=== PATIENT | female | born 1970 | race Caucasian/White ===

== ENCOUNTER 2017-05-14 15:30 | Observation (INO) | payer OTHER ==
[2017-05-14 16:07] VITALS: BMI 25.0
--- NOTE | 2017-05-19 18:35 | HP ---
DATE OF ADMISSION: 05/20/2017 REASON FOR ADMISSION: Dysmenorrhea, menometrorrhagia, desires prophylactic oophorectomy. SCHEDULED PROCEDURES: Total laparoscopic hysterectomy, bilateral salpingo-oophorectomy, da Blas beto ot. HISTORY OF PRESENT ILLNESS: Ms. Loco is a 47-year-old 2, para 2, status post x2 w ithout a history of dysplasia. She has a history of menorrhagia lasting more than 7 days per month, passing large clots with more than 8 tampons per day. This has been unresponsive to medical manageme nt. She is status post bilateral tubal ligation. 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 PAST MEDICAL HISTORY: Hypothyroidism, status post Graves' disease with radioactive iodine ablation. PAST SURGICAL HISTORY: BTL. ALLERGIES: CODEINE. MEDICATIONS: Synthroid 0.125 p.o. daily. SOCIAL HISTORY: One-half pack per day tobacco use. Denies alcohol or IV drug abuse. FAMILY HISTORY: Noncontributory. REVIEW OF SYSTEMS: Noncontributory. PHYSICAL EXAMINATION: GENERAL: White female, 5 feet 11 inches, 120, BMI 24. VITAL SIGNS: Blood pressure 118/80. HEENT: Within normal limits. LUNGS: Clear to auscultation bilaterally. HEART: Regular rate and rhythm. BREASTS: No masses bilaterally. ABDOMEN: Soft, nontender. No rebound or guarding. PELVIC: Vulva without lesions. Vagina without discharge. Cervix normal size, no lesions. Uterus a nteverted, approximately 8-week size, boggy. No adnexal masses. EXTREMITIES: Without clubbing, cyanosis or edema. LABORATORY: Negative Pap smear. RADIOLOGIC: Ultrasound reveals uterus measuring 8.8 x 4.5 with inhomogeneous appearance consistent w ith adenomyosis of 16 mm endometrial thickness. Normal size. Right and left ovaries without free fl uid. IMPRESSION: Dysmenorrhea, menorrhagia, desires prophylactic oophorectomy. PLAN: We will proceed with total laparoscopic hysterectomy with da Blas and bilateral salpingo-ooph orectomy. The patient understands risks and benefits of procedure including bleeding, infection and injury to pelvic organs. She understands surgical menopause and the possible need for hormone replac ement. The patient also understands the increased risk of infection, DVT, and other postoperative mo rbidity associated with tobacco use. The patient was started on 21 mg per day nicotine patch one wee k prior to surgery.
[2017-05-20] MEDS ORDERED: CEFAZOLIN/Water 2 GM/20 ML SYRINGE ONE (06:19)
[2017-05-20] MEDS ORDERED: Midazolam HCl 2 mg/2 ml Vial ONE ×2 (06:20→07:09)
[2017-05-20] MEDS ORDERED: Fentanyl 100 MCG/2 ML VIAL ONE ×3 (06:20→11:49)
[2017-05-20] MEDS ORDERED: HYDROmorphone 0.5 MG/0.5 ML SYRINGE ONE (06:20)
[2017-05-20] MEDS ORDERED: Lidocaine 1% w/Epinephrine 1:200K 30 ML VIAL ONE (06:28)
[2017-05-20] MEDS ORDERED: Bupivacaine 0.25% HCL 30 ML VIAL ONE (06:28)
[2017-05-20] MEDS ORDERED: Ketorolac Tromethamine 30 MG/ML VIAL ONE (09:33)
--- NOTE | 2017-05-20 10:13 | OP ---
DATE OF PROCEDURE: 05/20/2017 PREOPERATIVE DIAGNOSES: Dysmenorrhea, menometrorrhagia. POSTOPERATIVE DIAGNOSES: Dysmenorrhea, menometrorrhagia, plus adhesions of the bladder to the lower uterine segment and upper cervix. PROCEDURE: Total laparoscopic hysterectomy, bilateral salpingo-oophorectomy with da Blas robot shereen lagos SURGEON: Gregory Gregg M.D. LOGISTICS ASSOCIATE: Sandra Otero D.O. ANESTHESIA: General endotracheal. ESTIMATED BLOOD LOSS: 100 mL. DRAINS: Fischer to gravity. MEDICATIONS: Two grams Ancef preincision. DVT PROPHYLAXIS: SCDs. OPERATIVE FINDINGS: 1. Approximately 8-10 week size uterus consistent with adenomyosis. 2. Normal appearing tubes and ovaries bilaterally. 3. Mildly dense adhesions of the bladder to the cervix and lower uterine segments status post marisa an section. 4. No evidence of bladder injury, backfilling. 5. Hemostasis and correct counts at the end of the procedure. DISPOSITION: To the recovery room in good condition. DESCRIPTION OF OPERATIVE PROCEDURE: After obtaining proper informed consent, the patient taken to [facility] operating room where general endotracheal anesthesia was achieved without difficulty. The patient was prepped and draped in dorsal lithotomy position in Jonathan stirrups. Weighted speculum placed in v agina, cervix identified, single tooth tenaculum grasped anteriorly and sounded to 9 cm. A 3.5 vagin al energy and sustainability manager with 8 cm obturator was placed in the uterine cavity without difficulty. Fischer cathete r placed and draining approximately 150 mL of urine and then placed on 60 mL syringe. Tenaculum a nd speculum removed. Is Consultant changed his gloves and turned his attention to the abdominal portion o f the procedure. Five mL of Marcaine injected at the superior aspect of the umbilicus and a 12 mm sk in incision made. Veress needle placed inside the abdominal cavity. Confirmation of entry to perito anaya cavity via saline drop test. Insufflation carried out with carbon dioxide to a max pressure of 15, volume approximately 3.5 liters. A 12 mm trocar placed and confirmation of entry into the perito anaya cavity without trauma to underlying viscera was noted under direct visualization. The patient w as placed in steep Trendelenburg position and right and left lateral trocars for the da Blas robot w ere placed lateral to epigastric vessels. An 11 mm right upper quadrant senior office assistant port was placed. The da Blas robot was docked with monopolar scissors in the right hand and bipolar fenestrated force ps in the left. Pelvic organs were mobilized and the IP was identified on the patient's left coagula chaparro adjacent to the ovary away from the pelvic sidewall transected and through the broad, the round, and the cardinal ligaments down to just above the level of the internal cervical os. Identical proce dure carried out on the patient's right. Vesicouterine peritoneum was identified and incised sharply . It was noted to be somewhat scarred up onto the uterus, but did not appear significantly tenting t he bladder. However, as dissection was carried down after making the initial incision to the vesicou terine peritoneum, the bladder was noted to be adhesed to the lower uterine segment and cervix up to a level approximately just below that of her previous hysterotomy incisions. This was carried down u sing blunt and sharp dissection until appropriate tissue plane was identified. The bladder was backf illed and deflated several times, assuring it location was identified and no injury to the bladder wa s encountered. Skeletonization of the uterine vessels on each side was carried out and they were coa gulated and transected. Posteriorly, the peritoneum was incised over the vaginal energy and sustainability manager and then the vagina entered at 6 o'clock. This was extended from 6-9 and 6-3, pedicles at the corner were re ndered hemostatic and transected, then anteriorly at 12 o'clock incision was made into the vagina and extended from 12-3 and 12-6. The specimen was pulled into the vagina intact. Suction irrigation ca rried out which revealed good hemostasis. Anterior vagina was grasped and pulled down and backfillin g of the bladder was carried out once again to assure appropriate and identification of the location of the bladder. Bladder was filled up approximately 300 mL of normal saline and no evidence of injur y or leakage was noted to the bladder. It was then deflated and the 0 PDS Stratafix suture was used to close the vagina in a running continuous manner from right to left and then back to right. Good h emostasis was noted and suction irrigation and counts were correct. Lu was applied across the ra w pedicles and field, instruments removed. The da Blas undocked. All trocars removed, abdomen desu fflated of carbon dioxide. The fascia at the umbilical trocar site reapproximated using an 0 Vicryl on a UR-5 needle. Skin reapproximated x4 using 4-0 Monocryl. Vagina inspected and noted to be dry, and intact cuff. Fischer catheter was draining clear urine. The patient was awakened, extubated, and taken to recovery room in good condition.
[2017-05-20] MEDS ORDERED: Promethazine HCl 25 MG/ML VIAL ONE (10:17)
[2017-05-20] MEDS ORDERED: Promethazine HCl 25 MG/ML VIAL SLOW IVP PRN (10:28)
[2017-05-20] MEDS ORDERED: Promethazine HCl 25 MG/ML VIAL IM PRN (10:28)
[2017-05-20] MEDS ORDERED: Ondansetron HCl/PF 4 MG/2 ML Vial IVP PRN (10:28)
[2017-05-20] MEDS ORDERED: Estradiol 0.05mg/24 Hour Patch (Weekly) ONE (11:06)
[2017-05-20] MEDS ORDERED: hydrALAZINE 20 MG/ML VIAL ONE (11:58)
[2017-05-20] MEDS ORDERED: Estradiol 0.05mg/24 Hour Patch (Weekly) TD SCH (13:01)
[2017-05-20] MEDS ORDERED: Zolpidem Tartrate 5 MG TAB PO PRN (13:01)
[2017-05-20] MEDS ORDERED: Simethicone Chewable 80 MG TAB PO PRN (13:01)
[2017-05-20] MEDS: Acetaminophen 1,000 MG in Premix Bag 1 BAG IVPB SCH ×2 (14:13→20:09)
[2017-05-20] MEDS: Sodium Chloride 0.9% 1,000 ML IV SCH ×2 (14:13→21:00)
[2017-05-20] MEDS: Ketorolac Tromethamine 30 MG/ML VIAL IVP SCH ×2 (14:59→20:04)
[2017-05-20] MEDS: Ondansetron HCl/PF 4 MG/2 ML Vial IVP PRN (15:03)
[2017-05-20] MEDS ORDERED: PROPOFOL 200 MG/20 ML VIAL ONE (15:08)
[2017-05-20] MEDS ORDERED: Lidocaine 1% PF 5 ML VIAL ONE (15:08)
[2017-05-20] MEDS ORDERED: Dexamethasone 20 MG/5 ML VIAL ONE (15:08)
[2017-05-20] MEDS ORDERED: PHENYLEPHRINE-NS 100 MCG/ML 10 ML SYRINGE ONE (15:08)
[2017-05-20] MEDS ORDERED: Ondansetron HCl/PF 4 MG/2 ML Vial ONE (15:08)
[2017-05-20] MEDS ORDERED: Glycopyrrolate 0.2 MG/ML 5 ML SYRINGE ONE (15:08)
[2017-05-20] MEDS: traMADol HCl 50 MG TAB PO PRN ×2 (17:43→21:26)
[2017-05-20] MEDS ORDERED: Morphine 5 MG/ML SYRINGE SLOW IVP SCH (19:00)
[2017-05-20] MEDS ORDERED: ADDERRALL PO SCH (21:00)
[2017-05-21] MEDS: Ketorolac Tromethamine 30 MG/ML VIAL IVP SCH ×3 (02:24→13:20)
[2017-05-21] MEDS: Acetaminophen 1,000 MG in Premix Bag 1 BAG IVPB SCH ×2 (02:29→07:32)
[2017-05-21] MEDS ORDERED: Levothyroxine 150 MCG TAB PO SCH (06:00)
[2017-05-21 06:18] LABS: Hemoglobin 8.9 g/dL (12.0-16.0); Mean Corpuscular HGB CONC 31.5 g/dL (32.0-36.0); Mean Corpuscular Hemoglobin 26.2 pg (27.0-31.0); Mean Platelet Volume 9.2 fL (7.4-10.4); Platelet Count 275 thou/uL (130-400); RBC Distribution Width 17.4 % (11.5-14.5); Red Blood Cell (RBC) Count 3.39 mill/uL (4.20-5.40); White Blood Cell (WBC) Count 17.1 thou/uL (4.8-10.8)
[2017-05-21] MEDS: Ondansetron HCl/PF 4 MG/2 ML Vial IVP PRN (06:32)
[2017-05-21 07:30] VITALS: TEMP 98.4
[2017-05-21] MEDS: Promethazine HCl 25 MG/ML VIAL IM PRN ×2 (07:31→15:32)
[2017-05-21] MEDS: Sodium Chloride 0.9% 1,000 ML IV SCH ×2 (07:31→12:19)
[2017-05-21 08:02] VITALS: BP 134/84
[2017-05-21] MEDS ORDERED: Acetaminophen 1,000 MG in Premix Bag 1 BAG IVPB PRN (09:02)
[2017-05-21] MEDS: traMADol HCl 50 MG TAB PO PRN (13:19)
--- NOTE | 2017-05-21 14:26 | DIS ---
DATE OF ADMISSION: 05/20/2017 DATE OF DISCHARGE: 05/21/2017 SUMMARY OF HOSPITAL COURSE: The patient was admitted and underwent total laparoscopic hysterectomy, bilateral salpingo-oophorectomy at [place] on 05/20/2017. She had an unremarkable postoperative c ourse with a hematocrit of 28%. Postoperative day #1, she had good urine output and stable vital sig ns. The patient had mild nausea in the morning, which was responsive to Phenergan. She was tolerati ng p.o., voiding with ease and ambulating with ease upon discharge. DISCHARGE MEDICATIONS: Include tramadol and Phenergan. FOLLOWUP: She will be followed up at [facility] [place] in 6 weeks.
== END 2017-05-21 16:01 | disposition home or self-care (01) ==
LOC: SURG A 05-20 06:09 → INTOOBSV 05-20 06:09 → 3SE 05-20 11:58 → EDSTATUS 05-20 15:30
PROVIDERS: ADMIT Obstetrics & Gynecology; ATTEND Obstetrics & Gynecology
PROC: 0UT94ZZ Resection of Uterus, Percutaneous Endoscopic Approach (ICD-10-PCS; principal; 2017-05-20)
PROC: 0UT24ZZ Resection of Bilateral Ovaries, Percutaneous Endoscopic Approach (ICD-10-PCS; 2017-05-20)
PROC: 0UT74ZZ Resection of Bilateral Fallopian Tubes, Percutaneous Endoscopic Approach (ICD-10-PCS; 2017-05-20)
DX: N85.8 Other specified noninflammatory disorders of uterus (principal); N92.0 Excessive and frequent menstruation with regular cycle; N93.8 Other specified abnormal uterine and vaginal bleeding; N32.89 Other specified disorders of bladder; E03.9 Hypothyroidism, unspecified; F17.210 Nicotine dependence, cigarettes, uncomplicated; D64.9 Anemia, unspecified; F90.0 Attention-deficit hyperactivity disorder, predominantly inattentive type; F41.9 Anxiety disorder, unspecified; G43.909 Migraine, unspecified, not intractable, without status migrainosus; Z79.899 Other long term (current) drug therapy; Z88.5 Allergy status to narcotic agent; Z88.6 Allergy status to analgesic agent; Z98.51 Tubal ligation status; Z98.891 History of uterine scar from previous surgery; Z98.890 Other specified postprocedural states; Z86.39 Personal history of other endocrine, nutritional and metabolic disease
CPT/HCPCS: 36415; 85027; 88307; 96361; 96365; 96372; 96375; 96376; J2270; A4216; G0378; J0131; J0360; J1100; J1170; J1885; J2001; J2250; J2405; J2550; J2704; J3010; S0020

== ENCOUNTER 2017-05-14 15:38 | Outpatient (CLI) | payer OTHER ==
[2017-05-14 16:42] LABS: #Eosinphils 0.2 thou/uL (0.0-0.7); #Lymphocytes 1.9 thou/uL (1.20-3.40); #Monocytes 0.7 thou/uL (0.11-0.59); #Neutrophils 5.7 thou/uL (1.40-6.50); %Basophils 0.5 % (0.0-1.0); %Eosinophils 2.5 % (0.0-10.0); %Lymphocytes 22.3 % (21.0-51.0); %Monocytes 8.1 % (0.0-10.0); %Neutrophils 66.6 % (42.0-75.0); Hemoglobin 10.4 g/dL (12.0-16.0); Mean Corpuscular HGB CONC 31.2 g/dL (32.0-36.0); Mean Corpuscular Hemoglobin 25.3 pg (27.0-31.0); Mean Corpuscular Volume 81.1 fl (81.0-99.0); Mean Platelet Volume 9.2 fL (7.4-10.4); Platelet Count 286 thou/uL (130-400); RBC Distribution Width 18.3 % (11.5-14.5); Red Blood Cell (RBC) Count 4.11 mill/uL (4.20-5.40); White Blood Cell (WBC) Count 8.6 thou/uL (4.8-10.8)
[2017-05-14 17:05] LABS: BHCG - Serum Negative (NEGATIVE); Pregs Control Background? CLEAR/WHITE (CLR/WHITE); Pregs Control Bar Appear? YES (CONTROL BAR)
[2017-05-14 17:22] LABS: Free T4 (Free Thyroxine) 0.44 ng/dL (0.70-1.48); Thyroid Stimulating Hormone 19.6583 uIU/mL (0.35-4.94)
--- NOTE | 2017-06-04 09:23 | HP ---
DATE OF ADMISSION AND OBSERVATION: 06/04/2017 REASON FOR ADMISSION: Postoperative cuff cellulitis, not responsive to outpatient management. HISTORY OF PRESENT ILLNESS: Ms. Loco is a 47-year-old 2, para 2 who underwent a TLH/BSO wit h da Blas on 05/20/2017, 15 days ago. She reports that over the past weekend approximately 5 days a go, she developed increasing burning and pain. She was seen by Dr. Barrientos in the office 3 days ago a nd started on Augmentin 875 b.i.d. for a presumed cuff cellulitis. She states that she is not feelin g any better. The patient has not been reliably taking her temperature at home. 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 PAST MEDICAL HISTORY: Significant for hypothyroidism, status post Graves' disease or radioactive iod ine ablation. The patient also has a history of ADHD. PAST SURGICAL HISTORY: BTL and surgery on 05/20/2017. ALLERGIES: CODEINE. MEDICATIONS: Synthroid and Augmentin. Irregular Adderall use for ADHD. SOCIAL HISTORY: One-half pack per day tobacco use. Patient reports decreased tobacco use in the pos t-hysterectomy. Denies alcohol or IV drug abuse. FAMILY HISTORY: Noncontributory. REVIEW OF SYSTEMS: Patient denies nausea, vomiting. Reports abdominal pain. Reports daily bowel mo vements. Denies urinary retention or change in urinary habits. Reports that her urinary burning mario t she had over the weekend is improved. PHYSICAL EXAMINATION: GENERAL: White female, not in acute distress, but appears to not feel well. VITAL SIGNS: Blood pressure 102/84, pulse 101, temperature 98.6, respirations 16, BMI 24. HEENT: Within normal limits. LUNGS: Clear to auscultation bilaterally. HEART: Regular rate and rhythm. ABDOMEN: Soft. She has voluntary guarding in the midline lower pelvis. She has no fluid wave. No distention. Bowel sounds in all 4 quadrants. EXTREMITIES: Without clubbing, cyanosis or edema. PELVIC: Vulva without lesions. Vagina has some purulent discharge. Cuff appears intact and is not erythematous or necrotic. Bimanual exam reveals some level of induration, but no appreciable mass. IMPRESSION: Probable cuff cellulitis, not responding to outpatient management. Cannot rule out pelv ic abscess at this time. PLAN: Admission and observation status with IV Zosyn and Flagyl, CBC and comp met, cath UA with cult ure, and CT scan of abdomen and pelvis with IV contrast.
== END 2017-05-14 15:39 | disposition home or self-care (01) ==
LOC: LABBT 15:38
PROVIDERS: ATTEND Obstetrics & Gynecology
DX: Z01.812 Encounter for preprocedural laboratory examination (principal); N92.0 Excessive and frequent menstruation with regular cycle
CPT/HCPCS: 84439; 84443; 84703; 85025; 86850; 86900; 86901

== ENCOUNTER 2017-06-04 09:12 | Observation (INO) | payer OTHER ==
[2017-06-04] MEDS ORDERED: Guaifenesin DM 100-10/5 ML UDCUP PO PRN (09:59)
[2017-06-04] MEDS ORDERED: Zolpidem Tartrate 5 MG TAB PO PRN (09:59)
[2017-06-04] MEDS ORDERED: Sodium Chloride 0.9% 1,000 ML IV SCH (09:59)
[2017-06-04 10:01] VITALS: BMI 26.4
[2017-06-04] MEDS ORDERED: Sodium Chloride 0.9% 10 ML ONE (10:01)
[2017-06-04] MEDS: Nicotine 21 MG PATCH TD SCH (10:35)
[2017-06-04] MEDS: Ondansetron ODT 4 MG TAB PO PRN ×2 (10:36→16:59)
[2017-06-04] MEDS: traMADol HCl 50 MG TAB PO PRN ×2 (10:38→16:52)
[2017-06-04] MEDS: Piperacillin/Tazobactam 3.375 GM in Sodium Chloride 0.9% 100 ML IVPB SCH ×2 (10:53→16:59)
[2017-06-04 10:57] LABS: #Basophils 0.1 thou/uL (0.0-0.2); #Eosinphils 0.3 thou/uL (0.0-0.7); #Lymphocytes 1.2 thou/uL (1.20-3.40); #Monocytes 0.9 thou/uL (0.11-0.59); #Neutrophils 8.1 thou/uL (1.40-6.50); %Basophils 0.9 % (0.0-1.0); %Eosinophils 2.8 % (0.0-10.0); %Lymphocytes 11.5 % (21.0-51.0); %Monocytes 8.2 % (0.0-10.0); %Neutrophils 76.6 % (42.0-75.0); Hemoglobin 9.8 g/dL (12.0-16.0); Mean Corpuscular HGB CONC 31.6 g/dL (32.0-36.0); Mean Corpuscular Hemoglobin 25.8 pg (27.0-31.0); Mean Corpuscular Volume 81.9 fl (81.0-99.0); Mean Platelet Volume 9.1 fL (7.4-10.4); Platelet Count 262 thou/uL (130-400); RBC Distribution Width 16.6 % (11.5-14.5); Red Blood Cell (RBC) Count 3.79 mill/uL (4.20-5.40); White Blood Cell (WBC) Count 10.5 thou/uL (4.8-10.8)
[2017-06-04 11:19] LABS: ALT (SGPT) 18 U/L (8-55); AST (SGOT) 15 U/L (5-34); Albumin 4.2 g/dL (3.5-5.0); Alkaline Phosphatase 92 U/L (40-150); Anion Gap 13 mmol/L (10-20); BUN (Urea Nitrogen) 13 mg/dL (7.0-18.7); Bilirubin, Total 0.2 mg/dL (0.2-1.2); Calc. Creatinine Clearance 75 mL/min (70-130); Calcium 9.1 mg/dL (7.8-10.44); Carbon Dioxide 26 mmol/L (22-29); Chloride 106 mmol/L (98-107); Estimated GFR-MDRD 79; Globulin 2.5 g/dL (2.4-3.5); Glucose 86 mg/dL (70-105); Potassium 3.9 mmol/L (3.5-5.1); Protein, Total 6.7 g/dL (6.0-8.3); Sodium 141 mmol/L (136-145)
[2017-06-04 11:30] LABS: Bilirubin Negative (Negative); Blood, Urine Negative (Negative); Clarity CLEAR (Clear); Glucose, Urine (Dipstick) Negative (Negative); Leukocyte Negative (Negative); Nitrite Negative (Negative); Protein, Urine (Dipstick) Negative (Neg-Trace); Specific Gravity, Urine 1.012 (1.002-1.036); Urobilinogen 0.2 mg/dL (0.2-1.0); pH, Urine 6.5 (5.0-9.0)
[2017-06-04 11:35] LABS: Bacteria/HPF None Seen HPF (None Seen); Hyaline Casts/LPF 0-3 HYALINE CAST LPF (0-3 Hyaline); RBC/HPF 0-3 HPF (0-3); Squamous Epithelial 0-3 HPF (0-3); WBC/HPF None Seen HPF (0-3)
[2017-06-04] MEDS: Promethazine 25 MG TAB PO PRN ×2 (13:18→20:17)
[2017-06-04] MEDS: metroNIDAZOLE 500 MG in Premix Bag 1 BAG IVPB SCH ×2 (13:19→22:04)
[2017-06-04] MEDS ORDERED: Iopamidol 370 76% 100 ML VIAL ONE (13:26)
--- NOTE | 2017-06-04 13:56 | CT ---
CT OF ABDOMEN AND PELVIS PERFORMED WITH CONTRAST ENHANCEMENT: HISTORY: Postop hysterectomy with cellulitis. FINDINGS: The lung bases are clear of infiltrative process. The liver and spleen are within normal limits of size. Pancreas and gallbladder regions appear unrem arkable. The stomach is mildly distended with fluid. Right and left adrenal glands are normal in appearance. There are 2 approximately 4 mm nonobstructin g right renal calculi and 2 similar-sized mid to lower pole left renal calculi. No signs of obstruct ion or dilatation of either ureter. There is no significant periaortic or mesenteric adenopathy and no signs of free fluid. CT OF PELVIS PERFORMED WITH CONTRAST ENHANCEMENT: There is no evidence of any free fluid. The appendix is normal in appearance. I do not see any sign s of any abscess collection. IMPRESSION: 1. Bilateral nonobstructing renal calculi. 2. No signs of any pelvic abscess or fluid collections. No signs that would suggest any type of ure teral injury. POS: [facility]
[2017-06-04] MEDS: Docusate 100 MG CAP PO SCH (22:03)
[2017-06-04] MEDS: Famotidine 20 MG TAB PO SCH (22:04)
[2017-06-05] MEDS: Piperacillin/Tazobactam 3.375 GM in Sodium Chloride 0.9% 100 ML IVPB SCH ×2 (00:26→05:36)
[2017-06-05] MEDS: traMADol HCl 50 MG TAB PO PRN ×3 (00:27→11:20)
--- NOTE | 2017-06-05 04:25 | DIS ---
DATE OF ADMISSION: 06/04/2017, approximately 1100 hours. DATE OF DISCHARGE: 06/05/2017, approximately 0800 hours. SUMMARY OF HOSPITAL COURSE: Ms. Loco was seen in the office and her complaints were consistent with a non-improving cuff cellulitis approximately 15 days post total laparoscopic hysterectomy and bilat eral salpingo-oophorectomy. The patient was placed in the observation status, converted over from he r oral antibiotic, which was Augmentin 875 b.i.d. to Zosyn and Flagyl. The patient's vital signs upo n admission were within normal limits with a temperature of 97.5, pulse of 88, respirations 20, and b lood pressure 140/86. Laboratory revealed a white count of 10.5 with a normal diff, hematocrit of 31 %, normal comp met and a negative cath UA. A CT scan of the abdomen and pelvis with and without oral and IV contrast was performed. Reading was bilateral nonobstructing renal calculi measuring 4 mm in both the right and left pole, otherwise there was no evidence of pelvic abscess, fluid collection an d a normal postoperative skin was noted. The patient remained with reasonable discomfort and upon fu rther questioning, is probably just being too active at home. She is encouraged to decrease her acti vity, she will complete her Augmentin after discharge, and will be followed up at [facility] [place]. We will keep the patient overnight and administer antibiotics overnight and discharge kary e in the a.m. of 06/05/2017.
[2017-06-05] MEDS: metroNIDAZOLE 500 MG in Premix Bag 1 BAG IVPB SCH (06:47)
[2017-06-05 07:39] VITALS: BP 120/74; TEMP 98.1
[2017-06-05] MEDS ORDERED: Enoxaparin Sodium 30 MG/0.3 ML SYRINGE SC SCH (09:00)
[2017-06-05] MEDS: Famotidine 20 MG TAB PO SCH (09:47)
[2017-06-05] MEDS: Docusate 100 MG CAP PO SCH (09:48)
[2017-06-05] MEDS ORDERED: Acetaminophen 325 MG TAB PO PRN (09:55)
[2017-06-05] MEDS: Nicotine 21 MG PATCH TD SCH (09:58)
[2017-06-05] MEDS: Promethazine 25 MG TAB PO PRN (11:20)
== END 2017-06-05 11:31 | disposition home or self-care (01) ==
LOC: 3SE 09:34 → UNDOADMIN 09:34 → 3SE 09:38
PROVIDERS: ADMIT Obstetrics & Gynecology; ATTEND Obstetrics & Gynecology
DX: N20.0 Calculus of kidney (principal); E03.9 Hypothyroidism, unspecified; F90.9 Attention-deficit hyperactivity disorder, unspecified type; F17.210 Nicotine dependence, cigarettes, uncomplicated; Z88.5 Allergy status to narcotic agent; Z79.899 Other long term (current) drug therapy; Z90.710 Acquired absence of both cervix and uterus; Z90.722 Acquired absence of ovaries, bilateral; Z98.51 Tubal ligation status; Z98.891 History of uterine scar from previous surgery
CPT/HCPCS: 36415; 74177; 80053; 81001; 85025; 87086; 96365; 96366; 96367; A4216; A4353; G0378; J2543; J7050; Q0162

== ENCOUNTER 2018-06-06 21:09 | Observation (INO) | payer OTHER, SELFPAY ==
[2018-06-06] MEDS ORDERED: Morphine 4 MG/ML VIAL ONE ×2 (21:38→23:06)
[2018-06-06] MEDS ORDERED: Aspirin Chewable 81 MG TAB ONE (21:39)
[2018-06-06] MEDS ORDERED: Nitroglycerin 2% Ointment 1 INCH/1 GM Packet ONE ×3 (21:39→22:46)
[2018-06-06] MEDS ORDERED: Ondansetron PF 4 MG/2 ML Vial ONE (21:39)
[2018-06-06] MEDS ORDERED: Famotidine/PF 20 mg/2ml Vial ONE (21:39)
[2018-06-06 21:50] LABS: Bilirubin Negative (Negative); Blood, Urine Moderate (Negative); Clarity Cloudy (Clear); Glucose, Urine (Dipstick) Negative (Negative); Leukocyte Negative (Negative); Nitrite Negative (Negative); Protein, Urine (Dipstick) 30 mg/dL (Neg-Trace); Urobilinogen 0.2 mg/dL (0.2-1.0); pH, Urine 7.5 (5.0-9.0)
[2018-06-06 21:55] LABS: Bacteria/HPF None Seen HPF (None Seen); Crystals/HPF 3+ AMORPH PHOS HPF (Negative); Squamous Epithelial 0-3 HPF (0-3); WBC/HPF 0-3 HPF (0-3)
[2018-06-06 21:56] LABS: BHCG - Serum Negative (NEGATIVE); Pregs Control Background? CLEAR/WHITE (CLR/WHITE); Pregs Control Bar Appear? YES (CONTROL BAR)
[2018-06-06 21:58] LABS: #Basophils 0.2 thou/uL (0.0-0.2); #Eosinphils 0.4 thou/uL (0.0-0.7); #Lymphocytes 2.7 thou/uL (1.20-3.40); #Monocytes 1.1 thou/uL (0.11-0.59); #Neutrophils 11.5 thou/uL (1.40-6.50); %Eosinophils 2.3 % (0.0-10.0); %Monocytes 6.8 % (0.0-10.0); %Neutrophils 72.9 % (42.0-75.0); Hemoglobin 16.2 g/dL (12.0-16.0); Mean Corpuscular HGB CONC 34.3 g/dL (32.0-36.0); Mean Corpuscular Hemoglobin 31.8 pg (27.0-31.0); Mean Corpuscular Volume 92.8 fL (78.0-98.0); Mean Platelet Volume 11.4 fL (7.4-10.4); Platelet Count 248 thou/uL (130-400); RBC Distribution Width 14.7 % (11.5-14.5); White Blood Cell (WBC) Count 15.7 thou/uL (4.8-10.8)
[2018-06-06 22:04] LABS: ALT (SGPT) 28 U/L (8-55); AST (SGOT) 23 U/L (5-34); Albumin 4.6 g/dL (3.5-5.0); Alkaline Phosphatase 109 U/L (40-150); Anion Gap 14 mmol/L (10-20); BUN (Urea Nitrogen) 12 mg/dL (7.0-18.7); Bilirubin, Total 0.4 mg/dL (0.2-1.2); Calc. Creatinine Clearance 0 mL/min (70-130); Calcium 9.8 mg/dL (7.8-10.44); Carbon Dioxide 28 mmol/L (22-29); Chloride 101 mmol/L (98-107); Estimated GFR-MDRD 59; Glucose 123 mg/dL (70-105); Lipase 43 U/L (8-78); Potassium 3.2 mmol/L (3.5-5.1); Protein, Total 7.6 g/dL (6.0-8.3); Sodium 140 mmol/L (136-145)
[2018-06-06 22:20] LABS: CKMB 4.1 ng/mL (0-6.6)
--- NOTE | 2018-06-06 22:43 | RAD ---
CHEST ONE VIEW: History: Chest pain Comparison: 2009 FINDINGS: Lungs are clear. No pneumothorax or effusion. Cardiac silhouette and mediastinal contours are within normal limits. No acute osseous abnormality. IMPRESSION: No acute intrathoracic abnormality. No significant change. POS: [facility]
[2018-06-06] MEDS ORDERED: Promethazine HCl 25 MG/ML VIAL ONE (23:09)
--- NOTE | 2018-06-06 23:48 | CT ---
CT ABDOMEN AND PELVIS WITHOUT CONTRAST STONE PROTOCOL: History: Right sided flank pain. Comparison: CT FINDINGS: Lung bases are clear. No pericardial effusion. There is moderate to severe right sided hydroureteronephrosis due to a distal obstructing calculus ri ght ureter at the ureteropelvic junction measuring 3 x 5 mm. There is a 4 mm calculus inferior right renal collecting system. Multiple 2-3 mm calculi are present throughout the left intrapolar and infer ior renal collecting system. No calculi within the urinary bladder itself. Mild to moderate right clinton ed perinephric stranding. Noncontrast evaluation of the spleen, pancreas, liver, and gallbladder are all unremarkable. No dilat ed loops of large or small bowel. No retroperitoneal adenopathy. 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 IMPRESSION: 1. Moderate to severe right sided hydroureteronephrosis. 2. Partially obstructed calculus distal right ureter at the ureterovesicular junction measures 3 x 5 mm. There are multiple punctate right sided renal calculi in the inferior collecting system as well a s multiple 2-3 mm calculi in the left renal collecting system without obstruction. POS: [facility]
[2018-06-07] MEDS ORDERED: Sodium Chloride 0.9% 1,000 ML IV SCH (00:33)
[2018-06-07] MEDS ORDERED: Ondansetron PF 4 MG/2 ML Vial IVP PRN (00:33)
[2018-06-07] MEDS ORDERED: Ondansetron ODT 4 MG TAB SL PRN (00:33)
[2018-06-07] MEDS ORDERED: Aztreonam 2 GM in Sodium Chloride 0.9% 100 ML IVPB SCH (01:00)
[2018-06-07 01:34] LABS: Troponin I 0.042 ng/mL (< 0.028)
[2018-06-07] MEDS: Sodium Chloride 0.9% 1,000 ML IV SCH ×3 (02:12→20:32)
[2018-06-07] MEDS: Morphine 4 MG/ML VIAL SLOW IVP PRN ×3 (02:18→20:30)
[2018-06-07] MEDS: Aztreonam 2 GM in Sodium Chloride 0.9% 100 ML IVPB SCH ×3 (02:42→18:35)
[2018-06-07 02:46] VITALS: BMI 27.6
[2018-06-07 05:22] LABS: Anion Gap 12 mmol/L (10-20); BUN (Urea Nitrogen) 10 mg/dL (7.0-18.7); Calc. Creatinine Clearance 78 mL/min (70-130); Calcium 8.6 mg/dL (7.8-10.44); Carbon Dioxide 20 mmol/L (22-29); Chloride 110 mmol/L (98-107); Estimated GFR-MDRD 70; Glucose 115 mg/dL (70-105); Potassium 3.7 mmol/L (3.5-5.1); Sodium 138 mmol/L (136-145)
[2018-06-07 05:28] LABS: Troponin I 0.029 ng/mL (< 0.028)
[2018-06-07 05:34] LABS: Hemoglobin 14.4 g/dL (12.0-16.0); Hypochromia SLIGHT = 6-15 cells (100X) (0-5/hpf); Lymphocytes 12 % (21-51); MDiff Complete? YES; Mean Corpuscular HGB CONC 33.4 g/dL (32.0-36.0); Mean Corpuscular Hemoglobin 32.4 pg (27.0-31.0); Mean Corpuscular Volume 96.7 fL (78.0-98.0); Mean Platelet Volume 9.5 fL (7.4-10.4); Monocytes 5 % (0-10); Neutrophil 78 % (42-75); Platelet Count 192 thou/uL (130-400); Platelet Morphology Comment Appears Adequate; RBC Distribution Width 14.5 % (11.5-14.5); Reactive Lymphocytes 5 % (0-10); Red Blood Cell (RBC) Count 4.44 mill/uL (4.20-5.40); White Blood Cell (WBC) Count 12.3 thou/uL (4.8-10.8)
[2018-06-07] MEDS: Levothyroxine 150 MCG TAB PO SCH (06:22)
[2018-06-07] MEDS: Enoxaparin Sodium 40 MG/0.4 ML SYRINGE SC SCH (08:15)
--- NOTE | 2018-06-07 09:05 | HP ---
CHIEF COMPLAINT: Chest pain and abdominal pain. HISTORY OF PRESENT ILLNESS: She is a 48-year-old woman with history of hypothyroidism and Graves disease, presented to the [place] [facility] because having some pain in the chest and abdominal pain with slight difficulty in urination. Over there, she has had some elevated troponin and CT scan shows partially obstructed calculus in the distal ureter, ureterovesical junction 3 mm , [id number] right-sided hydronephrosis. Because of positive troponin, the patient transferred here for the further evaluation and Urology consultation obtained. Further questioning, the patient has chest pain on the left side. Pain is constant pain, radiated to the left arm. No numbness. No tingling. No diaphoresis. The belly pain is on the lower suprapubic area radiated from the flank and difficulty in urination was noted. No dysuria. Vital signs; pulse 80, blood pressure 173/79, respirations 15, temperature 98.7. PAST MEDICAL HISTORY: Hypothyroidism with Graves disease, on synthroid, not taking the medicine properly, she missed her medicine last 3 weeks; ADHD, she is on Ritalin. FAMILY HISTORY: Noncontributory. PERSONAL HISTORY: Does not smoke. Does not drink. Denied any drug use. REVIEW OF SYSTEMS: CONSTITUTIONAL: Denies any fever or malaise. HEENT: No ear or throat problem. No eye problem. No diplopia. No double vision. CARDIOVASCULAR: She does have chest pain. No palpitations. No diaphoresis. No syncope. RESPIRATIONS: No cough. No short of breath. No wheezing. ABDOMEN: She does have some nausea and lower abdominal pain with right flank pain. No hematemesis. No melena. MUSCULOSKELETAL: No joint pain. NEUROLOGIC: No headache. No focal deficit. HEME/LYMPHATIC: No lymphedema. No early bruising noted. PHYSICAL EXAMINATION: GENERAL: When I examined her, she is a young girl, not in distress. VITAL SIGNS: Pulse 80, blood pressure 170/90, respirations 16, and temperature 97.8. HEENT: Head is atraumatic and normocephalic. Pupils are round and reactive. Extraocular muscles are intact. Ear, nose, and throat, normal. Tongue, mucosa moist. NECK: Supple. No JVD. No thyromegaly. CHEST: Normal vesicular breathing. No chest wall tenderness. CVS: S1 and S2, audible. No S3 or S4. ABDOMEN: Soft. Bowel sounds are audible. She has tenderness in her right flank and the suprapubic area. No guarding or rigidity. EXTREMITIES: No pedal edema. No clubbing or cyanosis. MARKET SPECIALIST: Alert x3. No focal deficits. LABORATORY DATA: Labs show her sodium 140, potassium 3.2, chloride 101, carbon dioxide 28, BUN 12, glucose 123. Troponin 0.031, second one is 0.042. Albumin 4.6, globulin 3.0, lipase 43. test negative. WBC 15.7, hematocrit 47.3, platelet count 248. Urine shows 0-3 wbc's, moderate. blood ASSESSMENT AND PLAN: 1. Chest pain with elevated troponin. We will get the echocardiogram, serial enzymes, looks like non-cardiac, we will monitor closely. Cardiology consult obtained. 2. Left ureterohydronephrosis with slightly obstructed ureteric stone. Urology consulted. IV antibiotics. IV fluid. IV pain management of morphine. 3. Deep venous thrombosis prophylaxis, on Lovenox. 4. Full code. Job ID: [id number] [facility]
[2018-06-07] MEDS: Acetaminophen 325 MG TAB PO PRN (15:32)
[2018-06-07] MEDS: Ketorolac Tromethamine 30 MG/ML VIAL IVP PRN ×2 (16:20→23:36)
--- NOTE | 2018-06-07 18:10 | CON ---
DATE OF CONSULTATION: REASON FOR CONSULTATION: Chest pain. HISTORY OF PRESENT ILLNESS: Ms. Loco is a 48-year-old woman, who recently presented with renal colic. This was a left-sided. She also had associated chest pain. She states there were 2 separate discomforts, although they both come together. She has not had either discomfort independent of each other. No other factors present. Troponin was in the indeterminate range. Her main risk factor for underlying coronary artery disease is positive tobacco abuse. PAST MEDICAL HISTORY: Hypothyroidism and ADHD. HOME MEDICATIONS: Include Ritalin. FAMILY HISTORY: Negative. SOCIAL HISTORY: No current tobacco or alcohol use. REVIEW OF SYSTEMS: A 10-point review of systems is reviewed and as above, otherwise negative. PHYSICAL EXAMINATION: VITAL SIGNS: Blood pressure 155/82, pulse 73, and temperature 98. GENERAL: Patient is a pleasant female who is in no acute distress. The patient appears their stated age. NEUROLOGIC: The patient is alert and oriented x3 with no focal neurologic deficits. HEENT: Sclerae without icterus. Mouth has moist mucous membranes with normal pallor. NECK: No JVD. Carotid upstroke brisk. No bruits bilaterally. LUNGS: Clear to auscultation with unlabored respirations. BACK: No scoliosis or kyphosis. CARDIAC: Regular rate and rhythm with normal S1 and S2. No S3 or S4 noted. No significant rubs, murmurs, thrills, or gallops noted throughout the precordium. PMI is not displaced. There is no parasternal heave. ABDOMEN: Soft, nontender, nondistended. No peritoneal signs present. No hepatosplenomegaly. No abnormal striae. EXTREMITIES: 2+ femoral and 2+ dorsalis pedis pulses. No cyanosis, clubbing, or edema. SKIN: No gross abnormalities. PERTINENT LABORATORY DATA: White blood cell count 12.3. Peak troponin 0.042. EKG not available for review. IMPRESSION: 1. Chest pain. 2. Renal colic. 3. Tobacco abuse. RECOMMENDATIONS: Ms. Loco's main risk for underlying coronary artery disease is tobacco abuse. At this point, recommend a noninvasive stress study to assess for any areas of ischemia. I did counselor manager her on cessation of all tobacco products. Further recommendation pending the above. Job ID: [id number]
--- NOTE | 2018-06-07 22:45 | CON ---
DATE OF CONSULTATION: 06/07/2018 REASON FOR CONSULTATION: 1. Right flank pain. 2. Right distal ureteral calculus, 3 x 5 mm. 3. Bilateral nephrolithiasis. 4. Cardiac stress with elevated serum troponins. HISTORY OF PRESENT ILLNESS: Ms. Keturah Loco is a pleasant 48-year-old white female, currently undergoing a divorce, who has a past history of nephrolithiasis and developed acute onset of right-sided back pain symptoms about a week ago. She has been having pain symptoms, that extend all the way down to the groin area. She has right-sided back pain, which is moderate to severe at times. The patient also came in complaining of left-sided chest pain with pain in her left arm and left chest. This is contralateral to the patient's obstructing stone. The patient attended the Emergency Department in [facility] and underwent cardiac troponin analysis, which shows three elevated troponins. These are actually marginally elevated at relatively low levels. She was brought to the hospital and admitted for cardiac evaluation and subsequent evaluation. A CT scan was performed on 06/06/2018, demonstrates the presence of a 3 x 5 mm right distal ureteral calculus, which appears partially obstructive as there is a degree of hydroureter and hydronephrosis. The patient has multiple additional calculi located bilaterally in the 2 kidneys. PAST MEDICAL HISTORY: 1. Hypothyroidism with Graves disease. The patient is supposed to be on Synthroid, but has not been taking the medicine correctly and has missed medicine for at least 3 weeks. 2. Adult attention deficit hyperactivity disorder, currently on Ritalin. 3. History of kidney stones. FAMILY MEDICAL HISTORY: No history of disorders. PERSONAL HISTORY: The patient is a half pack per day cigarette smoker and has smoked since [employer] conservatively. She has a 20-pack year cigarette smoking history. The patient reports that she consumes alcohol about once a month or so socially. Does not report any drug use. REVIEW OF SYSTEMS: CONSTITUTIONAL: No fever or chills. The patient is reporting only pain in her chest and her right back area extending to the right pelvis. CARDIOVASCULAR: The patient reported chest pain at admission. This is improved moderately. She does not report irregular rhythms. She does report radiation to her left arm. PULMONARY: Negative. GASTROINTESTINAL: The patient reported nausea and vomiting at admission; however, is no longer having those symptoms. MUSCULOSKELETAL: Negative. NEUROLOGIC: No cranial nerve deficits known. GENITOURINARY: The patient has past history of kidney stones as noted. ALLERGIES: THE PATIENT REPORTS AN ALLERGY TO CODEINE AND HYDROCODONE. MEDICATIONS: 1. The patient is supposed to be on Synthroid and this has been started. 2. Aztreonam IV on this admission for prophylaxis. 3. Lovenox 40 mg subcu. 4. Toradol 50 mg IV q.6. 5. Levothyroxine 150 mcg p.o. at 6 a.m. 6. Morphine sulfate 2 mg slow IVP. 7. Zofran 4 mg p.o. q.6 hours p.r.n. 8. IV sodium chloride at 125 mL/h. PHYSICAL EXAMINATION: HEAD, EYES, EARS, NOSE AND THROAT: Extraocular movements are intact. Sclerae anicteric. Oropharynx is clear. NECK: Supple. LUNGS: Clear to auscultation bilaterally. CARDIAC: Regular rate and rhythm. LUNGS: Clear bilaterally with mild COPD type changes. BACK: There is right-sided costovertebral angle tenderness with cognitive delay. There is no left-sided tenderness. ABDOMEN: Soft and nontender. Percussion reveals no increased tenderness in any of the quadrants. PELVIC: Deferred to the operative suite. EXTREMITIES: Extremities appear within normal limits. LABORATORY DATA: The patient's TSH at admission was 19.65 and free T4 was very low at 0.44. Troponins most recently has improved to 0.29 from a peak value of 0.42. The patient had 3 elevated troponins, but these are relatively minor elevations. Serum calcium is 8.6. Hematologic profile showed the patient had an elevated white count last night at 15.7 down to 12.3 today. The patient has a moderate left shift on manual differential at 78% neutrophils. Hemoglobin today is 14.4 with hematocrit of 42.9, down from 16.2 and 47.3 yesterday. A urinalysis obtained yesterday in the emergency department showed urine gravity of 1.020. There were 4 to 6 red cells and 0 to 3 white cells per high-power field, amorphous 3+ crystals were observed in the patient's urine, no bacteria observed. RADIOLOGIC DATA: CT scan of the abdomen and pelvis demonstrates a 3 x 5 mm right distal ureteral calculus with proximal hydroureter and hydronephrosis, bilateral nephrolithiasis is seen in both kidneys. ASSESSMENT: 1. Possible cardiac events, more looks like a stress event, putting stress on the patient's heart with combination of psychological stressors inappropriate too low of a level of supplementation with thyroid hormone and stress event associated with pain from the kidney stone. Most likely this will field return repairer negative, but we will await the dental laboratory assistant's evaluation before proceeding to any interventions. 2. Kidney stone, right distal ureter, 3 x 5 mm. This has about a 90% chance of passing within a month; however, the patient experienced a cardiac stress event, and as long as it is safe and appropriate for the patient to undergo an anesthetic procedure, I believe removal or stenting of this patient is indicated. She did have elevated white count at admission and left shift. Due to those factors, probably should undergo treatment. 3. ID. The patient probably should remain on antibiotic coverage since she has had some improvement of her white count on aztreonam. I would recommend continuing on that medication. The patient and I discussed her condition. She is in agreement with the plan to proceed to the operating room. 4. Diet concerns. The patient may have regular diet tonight and in the morning, but which should be n.p.o. after breakfast tomorrow. Tentatively, we will plan on proceeding to the operating room as long as there is appropriate cardiac clearance for the procedure. Job ID: [id number]
[2018-06-08] MEDS: Aztreonam 2 GM in Sodium Chloride 0.9% 100 ML IVPB SCH ×3 (02:14→17:39)
--- NOTE | 2018-06-08 05:11 | PDOC.PN ---
- Subjective Encounter Start Date: 06/07/18 Encounter Start Time: 11:45 - Objective Resuscitation Status - Order Detail: 06/07/18 03:10 Resuscitation Status Routine Resuscitation Status: FULL: Full Resuscitation Discussed with: PATIENT Vital Signs & Weight: Vital Signs (12 hours) Temp Pulse Resp BP Pulse Ox 06/07/18 23:21 98.2 F 71 12 145/69 H 96 06/07/18 19:08 97.4 F L 80 20 116/79 99 Weight Weight 136 lb 12.8 oz I&O: 06/06/18 06/07/18 06/08/18 06:59 06:59 06:59 Intake Total 676 2069 Output Total 600 1600 Balance 76 469 Result Diagrams: 06/07/18 04:45 06/07/18 04:45 Dx/Plan (1) Chest pain Code(s): R07.9 - CHEST PAIN, UNSPECIFIED Status: Acute (2) Nephrolithiasis Status: Acute (3) Smoking Code(s): F17.200 - NICOTINE DEPENDENCE, UNSPECIFIED, UNCOMPLICATED Status: Acute - Plan pt to undergo stress test if she is cleared by cardiology she will undergo -: procedure by urology if she does not pass the stone. * .
[2018-06-08] MEDS: Sodium Chloride 0.9% 1,000 ML IV SCH ×3 (05:20→19:44)
[2018-06-08] MEDS: Levothyroxine 150 MCG TAB PO SCH (05:20)
[2018-06-08] MEDS: Acetaminophen 325 MG TAB PO PRN (05:22)
[2018-06-08 06:20] LABS: Troponin I Less than 0.010 ng/mL (< 0.028)
[2018-06-08 07:47] LABS: Anion Gap 14 mmol/L (10-20); BUN (Urea Nitrogen) 10 mg/dL (7.0-18.7); Calc. Creatinine Clearance 83 mL/min (70-130); Calcium 8.2 mg/dL (7.8-10.44); Carbon Dioxide 16 mmol/L (22-29); Chloride 112 mmol/L (98-107); Estimated GFR-MDRD 75; Glucose 74 mg/dL (70-105); Potassium 3.6 mmol/L (3.5-5.1); Sodium 138 mmol/L (136-145)
[2018-06-08 08:07] LABS: Free T4 (Free Thyroxine) 0.57 ng/dL (0.70-1.48); Thyroid Stimulating Hormone 15.9424 uIU/mL (0.35-4.94)
[2018-06-08] MEDS ORDERED: hydrALAZINE 20 MG/ML VIAL SLOW IVP PRN (08:28)
[2018-06-08] MEDS ORDERED: ADENOSINE 60 MG/20 ML VIAL ONE (09:08)
[2018-06-08] MEDS: Morphine 4 MG/ML VIAL SLOW IVP PRN ×2 (12:46→22:06)
[2018-06-08] MEDS: Enoxaparin Sodium 40 MG/0.4 ML SYRINGE SC SCH (12:47)
--- NOTE | 2018-06-08 14:15 | NM ---
MYOCARDIAL PERFUSION STUDY: 06/08/2018 HISTORY: Chest pain. RADIOPHARMACEUTICAL: Technetium 99m sestamibi IV 33 millicuries at stress. Technetium 99m sestamibi IV 10.9 millicuries at rest. MEDICATIONS: Adenosine 11.6 mL (34.7 mg) IV. FINDINGS: No significant reversible defect is seen between the stress and rest acquisitions. Gated images demo nstrate normal ventricular wall motion and wall thickening. Calculated left ventricular ejection fra ction is 58%. IMPRESSION: 1. Normal myocardial perfusion study without evidence of a significant reversible defect seen to sug gest ischemia. 2. Normal left ventricular function with a normal left ventricular ejection fraction of 58%. POS: [facility]CHO
--- NOTE | 2018-06-08 16:15 | PDOC.CTH ---
Cardiology Progress Note - Subjective No complaints. CL negative for ischemia. Awaiting ureteral stent placement tomorrow. - Objective Vital Signs Temp Pulse Resp BP BP Pulse Ox 06/08/18 15:39 98 F 72 16 164/80 H 95 06/08/18 12:00 98.6 F 78 18 162/90 H 97 06/08/18 08:15 70 168/75 H 06/08/18 07:19 97.7 F 79 18 185/103 H 96 06/08/18 05:18 97.6 F 71 20 159/91 H 95 Weight 136 lb 12.8 oz 06/07/18 06/08/18 06/09/18 06:59 06:59 06:59 Intake Total 676 4985 340 Output Total 600 2550 1000 Balance 76 2435 -660 - Physical Examination General/Neuro: alert & oriented x3 - Telemetry Telemetry Rhythm: SR - Labs Result Diagrams: 06/07/18 04:45 06/08/18 04:49 Troponin/CKMB CK-MB (CK-2) 4.1 ng/mL (0-6.6) 06/06/18 21:40 Troponin I Less than 0.010 ng/mL (< 0.028) 06/08/18 04:49 - Assessment/Plan 1. Atypical CP 2. Renal colic Cleared for procedure. Will continue to monitor.
[2018-06-08] MEDS: Ketorolac Tromethamine 30 MG/ML VIAL IVP PRN (18:01)
[2018-06-08] MEDS: Ondansetron PF 4 MG/2 ML Vial IVP PRN (20:21)
[2018-06-09] MEDS: Aztreonam 2 GM in Sodium Chloride 0.9% 100 ML IVPB SCH ×3 (01:00→18:44)
[2018-06-09] MEDS: Ketorolac Tromethamine 30 MG/ML VIAL IVP PRN ×2 (01:01→09:57)
--- NOTE | 2018-06-09 05:12 | PDOC.PN ---
- Subjective Encounter Start Date: 06/08/18 Encounter Start Time: 15:00 Subjective: pt up in bed has some right CVA pain - Objective Resuscitation Status - Order Detail: 06/07/18 03:10 Resuscitation Status Routine Resuscitation Status: FULL: Full Resuscitation Discussed with: PATIENT Vital Signs & Weight: Vital Signs (12 hours) Temp Pulse Resp BP BP Pulse Ox 06/09/18 01:00 153/78 H 06/08/18 23:09 178/93 H 06/08/18 20:15 177/105 H 06/08/18 19:41 72 198/106 H 06/08/18 19:22 97.9 F 72 15 197/109 H 97 Weight Weight 136 lb 12.8 oz I&O: 06/07/18 06/08/18 06/09/18 06:59 06:59 06:59 Intake Total 676 4985 2253 Output Total 600 2550 3350 Balance 76 4697 -3326 Result Diagrams: 06/07/18 04:45 06/08/18 04:49 Phys Exam - Physical Examination Respiratory: no wheezing, no rales, no rhonchi, wheezing present, clear to auscultation bilateral Cardiovascular: RRR, no significant murmur, no rub, gallop, irregular right cva pain on palpation Musculoskeletal: no edema, pulses present, edema present Neurological: non-focal, normal sensation, moves all 4 limbs Dx/Plan (1) Chest pain Code(s): R07.9 - CHEST PAIN, UNSPECIFIED Status: Acute (2) Nephrolithiasis Status: Acute (3) Smoking Code(s): F17.200 - NICOTINE DEPENDENCE, UNSPECIFIED, UNCOMPLICATED Status: Acute - Plan stress test negative. procedure postponed since pt was allowed to eat -: pt did pass a stone -: will continue abx for now * . Review of Systems - Review of Systems Respiratory: negative: Cough, Dry, Shortness of Breath, Hemoptysis, SOB with Excertion, Pleuritic Pain, Sputum, Wheezing Cardiovascular: negative: chest pain, palpitations, orthopnea, paroxysmal nocturnal dyspnea, edema, light headedness, other Gastrointestinal: negative: Nausea, Vomiting, Abdominal Pain, Diarrhea, Constipation, Melena, Hematochezia, Other - Medications/Allergies Allergies/Adverse Reactions: Allergies Allergy/AdvReac Type Severity Reaction Status Date / Time codeine Allergy Severe Verified 06/07/18 00:42 hydrocodone [From [facility]] Allergy Verified 06/07/18 00:42 Medications: Current Medications Acetaminophen (Tylenol) 650 mg PO Q4H PRN PRN Reason: Headache/Fever/Mild Pain (1-3) Last Admin: 06/08/18 05:22 Dose: 650 mg Enoxaparin Sodium (Lovenox) 40 mg SC 0900 [facility] Last Admin: 06/08/18 12:47 Dose: 40 mg Hydralazine HCl (Apresoline) 5 mg SLOW IVP Q6H PRN PRN Reason: Blood Pressure Last Admin: 06/08/18 19:41 Dose: 5 mg Aztreonam 2 gm/ Sodium (Chloride) 100 mls @ 100 mls/hr IVPB 0200,1000,1800 [facility] Last Admin: 06/09/18 01:00 Dose: 100 mls Sodium Chloride (Normal Saline 0.9%) 1,000 mls @ 125 mls/hr IV .Q8H [facility] Last Admin: 06/08/18 19:44 Dose: 1,000 mls Ketorolac Tromethamine (Toradol) 15 mg IVP Q6H PRN PRN Reason: Pain Stop: 06/12/18 15:01 Last Admin: 06/09/18 01:01 Dose: 15 mg Levothyroxine Sodium (Synthroid) 150 mcg PO 0600 [facility] Last Admin: 06/08/18 05:20 Dose: 150 mcg Morphine Sulfate (Morphine) 2 mg SLOW IVP Q4H PRN PRN Reason: Mild-Moderate Pain (1-5) Last Admin: 06/08/18 22:06 Dose: 2 mg Ondansetron HCl (Zofran) 4 mg IVP Q6H PRN PRN Reason: Nausea/Vomiting Last Admin: 06/08/18 20:21 Dose: 4 mg Sodium Chloride (Flush - Normal Saline) 10 ml IVF PRN PRN PRN Reason: Saline Flush
[2018-06-09 06:03] LABS: #Basophils 0.1 thou/uL (0.0-0.2); #Eosinphils 0.5 thou/uL (0.0-0.7); #Lymphocytes 2.3 thou/uL (1.20-3.40); #Monocytes 0.8 thou/uL (0.11-0.59); #Neutrophils 5.8 thou/uL (1.40-6.50); %Basophils 0.7 % (0.0-1.0); %Eosinophils 5.3 % (0.0-10.0); %Lymphocytes 24.2 % (21.0-51.0); %Monocytes 8.4 % (0.0-10.0); %Neutrophils 61.5 % (42.0-75.0); Hemoglobin 13.4 g/dL (12.0-16.0); Mean Corpuscular Hemoglobin 32.6 pg (27.0-31.0); Mean Corpuscular Volume 98.7 fL (78.0-98.0); Mean Platelet Volume 9.8 fL (7.4-10.4); Platelet Count 188 thou/uL (130-400); RBC Distribution Width 14.6 % (11.5-14.5); White Blood Cell (WBC) Count 9.4 thou/uL (4.8-10.8)
[2018-06-09 06:18] LABS: ALT (SGPT) 23 U/L (8-55); AST (SGOT) 27 U/L (5-34); Albumin 3.5 g/dL (3.5-5.0); Alkaline Phosphatase 91 U/L (40-150); Anion Gap 12 mmol/L (10-20); BUN (Urea Nitrogen) 10 mg/dL (7.0-18.7); Bilirubin, Total 0.5 mg/dL (0.2-1.2); Calc. Creatinine Clearance 84 mL/min (70-130); Calcium 8.6 mg/dL (7.8-10.44); Carbon Dioxide 23 mmol/L (22-29); Chloride 109 mmol/L (98-107); Estimated GFR-MDRD 77; Globulin 2.6 g/dL (2.4-3.5); Glucose 82 mg/dL (70-105); Potassium 3.9 mmol/L (3.5-5.1); Protein, Total 6.1 g/dL (6.0-8.3); Sodium 140 mmol/L (136-145)
[2018-06-09] MEDS: Levothyroxine 150 MCG TAB PO SCH (07:10)
[2018-06-09] MEDS: Sodium Chloride 0.9% 1,000 ML IV SCH ×3 (07:10→18:44)
[2018-06-09] MEDS: Acetaminophen 325 MG TAB PO PRN ×2 (08:05→13:10)
[2018-06-09] MEDS: Enoxaparin Sodium 40 MG/0.4 ML SYRINGE SC SCH (08:07)
[2018-06-09] MEDS: Ondansetron PF 4 MG/2 ML Vial IVP PRN (10:37)
--- NOTE | 2018-06-09 12:54 | RAD ---
FRONTAL VIEW ABDOMEN KUB: INDICATION: Ureteral stone. FINDINGS: There are calcific densities overlying the mid abdomen bilaterally, somewhat obscured by overlying griffin wel content. Calcific density is also seen within the left hemipelvis. Calcification related to obs tructing distal right ureteral calculus on 06/06/2018 CT exam is not definitively visualized. IMPRESSION: 1. Multiple calcifications overlie the mid abdomen bilaterally corresponding to nephrolithiasis. 2. The obstructing distal right ureteral calculus documented on preceding CT is not definitively con firmed on the basis of this exam. POS: MONCHO
[2018-06-09] MEDS ORDERED: Lidocaine 1% PF 5 ML VIAL ONE (13:22)
[2018-06-09] MEDS ORDERED: PROPOFOL 200 MG/20 ML VIAL ONE (13:22)
[2018-06-09] MEDS ORDERED: Metoclopramide HCl 10 MG/2 ML VIAL ONE (13:22)
[2018-06-09] MEDS ORDERED: Dexamethasone 20 MG/5 ML VIAL ONE (13:22)
--- NOTE | 2018-06-09 15:28 | PDOC.PN ---
- Subjective Encounter Start Date: 06/09/18 Encounter Start Time: 11:15 Subjective: pt up in bed no complains - Objective Resuscitation Status - Order Detail: 06/07/18 03:10 Resuscitation Status Routine Resuscitation Status: FULL: Full Resuscitation Discussed with: PATIENT Vital Signs & Weight: Vital Signs (12 hours) Temp Pulse Resp BP Pulse Ox 06/09/18 11:48 97.8 F 74 14 174/84 H 96 06/09/18 07:24 97.6 F 70 16 134/86 95 06/09/18 04:00 97.6 F 68 18 140/92 H 96 Weight Weight 136 lb 12.8 oz I&O: 06/08/18 06/09/18 06/10/18 06:59 06:59 06:59 Intake Total 4985 3613 Output Total 2550 0830 Balance 2435 -737 Result Diagrams: 06/09/18 05:10 06/09/18 05:10 Phys Exam - Physical Examination Respiratory: no wheezing, no rales, no rhonchi, wheezing present, clear to auscultation bilateral Cardiovascular: RRR, no significant murmur, no rub, gallop, irregular Gastrointestinal: soft, non-tender, no distention, positive bowel sounds Musculoskeletal: no edema, pulses present, edema present Dx/Plan (1) Chest pain Code(s): R07.9 - CHEST PAIN, UNSPECIFIED Status: Acute (2) Nephrolithiasis Status: Acute (3) Smoking Code(s): F17.200 - NICOTINE DEPENDENCE, UNSPECIFIED, UNCOMPLICATED Status: Acute - Plan will continue abx for now -: stress test negative -: pt going for stenting today by urology * . Review of Systems - Review of Systems Respiratory: negative: Cough, Dry, Shortness of Breath, Hemoptysis, SOB with Excertion, Pleuritic Pain, Sputum, Wheezing Cardiovascular: negative: chest pain, palpitations, orthopnea, paroxysmal nocturnal dyspnea, edema, light headedness, other Gastrointestinal: negative: Nausea, Vomiting, Abdominal Pain, Diarrhea, Constipation, Melena, Hematochezia, Other Genitourinary: negative: Dysuria, Frequency, Incontinence, Hematuria, Retention , Other - Medications/Allergies Allergies/Adverse Reactions: Allergies Allergy/AdvReac Type Severity Reaction Status Date / Time codeine Allergy Severe Verified 06/07/18 00:42 hydrocodone [From [facility]] Allergy Verified 06/07/18 00:42 Medications: Current Medications Acetaminophen (Tylenol) 650 mg PO Q4H PRN PRN Reason: Headache/Fever/Mild Pain (1-3) Last Admin: 06/09/18 13:10 Dose: 650 mg Enoxaparin Sodium (Lovenox) 40 mg SC 0900 [facility] Last Admin: 06/09/18 08:07 Dose: Not Given Hydralazine HCl (Apresoline) 5 mg SLOW IVP Q6H PRN PRN Reason: Blood Pressure Last Admin: 06/08/18 19:41 Dose: 5 mg Aztreonam 2 gm/ Sodium (Chloride) 100 mls @ 100 mls/hr IVPB 0200,1000,1800 [facility] Last Admin: 06/09/18 09:57 Dose: 100 mls Sodium Chloride (Normal Saline 0.9%) 1,000 mls @ 125 mls/hr IV .Q8H [facility] Last Admin: 06/09/18 09:58 Dose: Not Given Ketorolac Tromethamine (Toradol) 15 mg IVP Q6H PRN PRN Reason: Pain Stop: 06/12/18 15:01 Last Admin: 06/09/18 09:57 Dose: 15 mg Levothyroxine Sodium (Synthroid) 150 mcg PO 0600 [facility] Last Admin: 06/09/18 07:10 Dose: 150 mcg Morphine Sulfate (Morphine) 2 mg SLOW IVP Q4H PRN PRN Reason: Mild-Moderate Pain (1-5) Last Admin: 06/08/18 22:06 Dose: 2 mg Ondansetron HCl (Zofran) 4 mg IVP Q6H PRN PRN Reason: Nausea/Vomiting Last Admin: 06/09/18 10:37 Dose: 4 mg Sodium Chloride (Flush - Normal Saline) 10 ml IVF PRN PRN PRN Reason: Saline Flush
[2018-06-09] MEDS ORDERED: Fentanyl 100 MCG/2 ML VIAL ONE ×2 (17:49→18:46)
[2018-06-09] MEDS ORDERED: Iothalamate Meglumine 60% 50 ML VIAL FS ONE (18:07)
[2018-06-09] MEDS ORDERED: Promethazine HCl 25 MG/ML VIAL IM PRN (18:41)
[2018-06-09] MEDS ORDERED: HYDROmorphone 2 MG/ML VIAL SLOW IVP PRN (18:41)
[2018-06-09] MEDS ORDERED: Meperidine HCl/PF 25 MG/ML VIAL SLOW IVP PRN (18:41)
[2018-06-09] MEDS ORDERED: Promethazine HCl 25 MG/ML VIAL SLOW IVP PRN (18:41)
--- NOTE | 2018-06-09 18:55 | RAD ---
RIGHT RETROGRADE PYELOGRAM: 06/09/18 HISTORY: Ureteral stone. Contrast was injected into a nondilated right collecting system. I do not definitely visualize any ur eteral calculus. IMPRESSION: No definitive evidence for ureteral calculus. POS: MONCHO
--- NOTE | 2018-06-09 22:44 | CON ---
DATE OF CONSULTATION: 06/09/2018 INITIAL REASON FOR CONSULTATION: 1. Right-sided flank pain. 2. Right distal ureteral calculus, 3 x 5 mm. 3. Bilateral nephrolithiasis. 4. Cardiac stress with elevated serum troponins. BRIEF HISTORY: Ms. Keturah Loco is a pleasant 48-year-old white female who has a history of a nephrolithiasis, who developed acute onset of right-sided back pain symptoms about a week ago. The patient developed severe symptoms which progressed throughout the day yesterday. She reports passing a small particle which could have been her kidney stone. The patient did have persistent and continued right-sided back pain which continues into today. A KUB study was performed which does not definitely demonstrate the calculus. We do not have any previous imaging studies except for a CT scan which demonstrated a 3 x 5 mm calculus in the right distal ureter. We note that KUB studies can be insensitive in unprepped patients, particularly if the patient has uric acid stones. The patient's previous kidney stone types are not known. Based on this, there is about a 40% possibility that the KUB imaging study will not demonstrate presence of calculus. The patient has additional calculi located in both of her kidneys. The patient has remained symptomatic today. The patient's nausea symptoms have improved significantly with medical management. PHYSICAL EXAMINATION: VITAL SIGNS: Temperature 97.5, pulse 67, respirations 16, O2 saturation on room air is 93%, blood pressure is 159/94. GENERAL: This is a pleasant, awake, alert, white female who is GCS 15. She has complaints of right-sided flank and abdominal pain which, although improved from yesterday were not completely resolved. CARDIAC: There is a regular rate and rhythm. The patient is not reporting cardiac chest pain at this point. She was having chest pain and left-sided arm pain at admission. LUNGS: Clear to auscultation bilaterally. ABDOMEN: Soft, nontender anteriorly. The patient relates her pain symptoms presented in her back on the right side and to the right groin area. PELVIC: Deferred. RADIOLOGIC IMAGING STUDIES: A KUB study was performed today at noon. This study demonstrates calcification in left pelvis, no calcification in the right pelvis of significance. There is a large amount of stool present in abdomen and colon and this obscures the visualization of the patient's proper kidneys. There are calcifications seen in the area of the kidneys, which could indicate presence of calcific nephrolithiasis. LABORATORY STUDIES: The patient's white count had fallen to 9400 from 15,700 on admission, the hemoglobin is down to 13.4 with hematocrit of 40.0. Left shift has improved with 72.9% neutrophils, on the day of admission, it was 78% neutrophils, and on 06/07/2018, down to 61.5% neutrophils. The ANC is improved from 11.5 to 5.8 on appropriate coverage. The patient's urine culture obtained on 06/04/2017 shows no growth at 48 hours. ASSESSMENT: 1. Persistent right-sided pain symptoms with recent history of CT documented right-sided ureteral calculus, possible the patient has actually passed stone on this side, however, she has persistent pain symptoms, which could indicate retention of the stone or particles or edema from the passed stone. In the setting where the patient presented with cardiac stress events, evaluation of the ureter is indicated to rule out current obstruction. I discussed with the patient that the stent placement will be only performed if the patient has poor drainage from the right collecting system which would expose her to additional cardiac risks. 2. Cardiac issues. The patient ruled out for actual myocardial infarction, but pain and dehydration associated stress event which occurred in the context of a kidney stone attack. This patient should undergo appropriate metabolic evaluation as an outpatient to minimize the progression of her kidney stones and minimize cardiac risks associated with stress events. PLAN: The patient will go to the operating room today for retrograde pyelography and assessment of drainage from the right collecting system. Discussed with the patient, although she has bilateral renal calculi, we are not going to directly address kidney stones in this event unless they are present in the patient's ureter. Over 35 minutes of consultation and assessment time was spent with the patient today. Job ID: [id number]
[2018-06-09] MEDS ORDERED: Docusate 100 MG CAP PO PRN (23:37)
--- NOTE | 2018-06-10 01:02 | OP ---
DATE OF PROCEDURE: 06/09/2018 PREPROCEDURE DIAGNOSES: 1. Bilateral nephrolithiasis, N20.0. 2. Obstructing right-sided ureteral calculus, N20.1. POSTPROCEDURE DIAGNOSES: 1. Bilateral nephrolithiasis, N20.0. 2. Passed right ureteral calculus, N20.1. 3. No evidence of obstruction on the right. PROCEDURE PERFORMED: Cystourethroscopy with right retrograde pyelography, [id number]. PER DIEM RN SURGEON: None. BRIEF HISTORY AND INDICATION FOR PROCEDURE: Ms. Keturah Loco is a pleasant 48-year-old white female with bilateral nephrolithiasis and presentation notable for acute cardiac syndrome in conjunction with a right-sided obstructing ureteral calculus. The patient underwent CT scan in the emergency department on 06/06/2018, and was noted to have a right UPJ level calculus. This measured 3 x 5 mm. The patient had severe pain symptoms. She passed a particle, which could be consistent with her calculus, however, had persistent continuous right-sided flank pain and right groin pain. Due to that, we elected to take her to operating room for evaluation. The patient has bilateral nephrolithiasis, is known to have additional stone burden in the right side. She opted to proceed with retrograde pyelography as initial evaluation and possible stent placement if necessary. DESCRIPTION OF PROCEDURE: The patient was appropriately identified in the preoperative holding area. Informed written consent was obtained. The patient was transferred to the operative suite, placed in the supine position. General anesthesia was established and appropriate time-out procedure was performed. The patient was repositioned in the supine lithotomy position and prepped and draped in usual sterile fashion. Cystoscopic evaluation was performed using a 23-St Lucian cystoscope sheath and a 30-degree optic. We introduced the scope per urethra and evaluated the patient's bladder. The patient's bladder was moreno endoscopically evaluated, we did not observe any stones. Right ureteric orifice did not appear to be inflamed as in a recent passage of calculus. The patient's right ureteric opening did efflux a small amount of urine consistent either with edema or an obstructing calculus above. Photographic evaluation did not demonstrate any radiopaque calculi in the distal ureter. Overriding stool somewhat limits some of the upper tract evaluation. The patient's cystoscopic evaluation was then converted to retrograde pyelography. We utilized a 10-St Lucian cone-tip catheter, which was introduced in the right ureter. Retrograde pyelography was performed. We did not observe any significant filling defects in the left ureter. The patient does have a UPJ-type obstruction which is delicate and narrow. The patient's renal pelvis remained distended secondary to a UPJ-type issue. The patient underwent a full retrograde evaluation with Conray and we performed drainage films as well, demonstrating the patient is not distally obstructed. She does have a right UPJ obstruction, however. No wire was passed per ureter and there was no stent placement performed during this procedure. The patient's collecting system was allowed to appropriately drain, documented using for graphic films. The patient was extubated in the operative suite, transported to the postoperative recovery in good condition. She tolerated the procedure well. No Fischer catheter was placed. Job ID: [id number]
[2018-06-10] MEDS: Aztreonam 2 GM in Sodium Chloride 0.9% 100 ML IVPB SCH ×2 (01:05→09:21)
[2018-06-10] MEDS: Sodium Chloride 0.9% 1,000 ML IV SCH ×2 (01:06→09:33)
[2018-06-10] MEDS: Levothyroxine 150 MCG TAB PO SCH (05:17)
[2018-06-10 08:16] LABS: Anion Gap 14 mmol/L (10-20); BUN (Urea Nitrogen) 9 mg/dL (7.0-18.7); Calc. Creatinine Clearance 94 mL/min (70-130); Calcium 8.8 mg/dL (7.8-10.44); Carbon Dioxide 19 mmol/L (22-29); Chloride 111 mmol/L (98-107); Estimated GFR-MDRD 86; Glucose 117 mg/dL (70-105); Potassium 4.2 mmol/L (3.5-5.1); Sodium 140 mmol/L (136-145)
[2018-06-10] MEDS: Enoxaparin Sodium 40 MG/0.4 ML SYRINGE SC SCH (09:21)
[2018-06-10] MEDS: Ketorolac Tromethamine 30 MG/ML VIAL IVP PRN (09:22)
[2018-06-10] MEDS ORDERED: traMADol HCl 50 MG TAB PO PRN (09:38)
[2018-06-10] MEDS: Ondansetron PF 4 MG/2 ML Vial IVP PRN (11:38)
[2018-06-10 12:00] VITALS: BP 159/91; TEMP 97.5
--- NOTE | 2018-06-11 08:17 | DIS ---
DATE OF ADMISSION: 06/06/2018 DATE OF DISCHARGE: 06/10/2018 DISCHARGE DIAGNOSES: 1. Chest pain. 2. Right-sided cerebrovascular accident tenderness, bilateral. 3. Bilateral nephrolithiasis. 4. Smoking cessation. HISTORY OF PRESENT ILLNESS/HOSPITAL COURSE: The patient is a very pleasant 48-year-old female, who initially presented to the hospital with chest tightness and also was found to have right-sided CVA tenderness. The patient did have some mildly elevated troponins. At this time, she was seen by Cardiology and underwent a stress test, which was normal. Her EF was 58%. The patient did have an echocardiogram also which indicated an EF of 55% to 60% with mild concentric left ventricular hypertrophy. She was seen by Urology and initially was put on broad-spectrum antibiotics. However, she passed the stone without any issues. The stone was sent for analysis. The patient did undergo cystourethroscopy with right retrograde pyelogram, however, no intervention was done. The patient was discharged home. She will follow up with Urology as an outpatient. She was advised to cancel smoking session. She did have a CT of abdomen and pelvis, which indicated [id number] right-sided hydroureteronephrosis, partially obstructing calculus in the distal right ureter and she has other multiple right-sided renal calculi that were nonobstructing. DISCHARGE MEDICATIONS: 1. Levothyroxine 150 mcg daily. 2. Colace 100 mg b.i.d. 3. Dextroamphetamine/amphetamine, which is Adderall 30 mg p.o. b.i.d. PHYSICAL EXAMINATION: VITAL SIGNS: Temperature 97.5, pulse 79, respiratory rate 18, 97% on room air, and blood pressure 159/91. GENERAL: She is awake, alert, and oriented x3. Does not appear in distress. CV: S1 and S2 present. No murmurs, rubs, or gallops. ABDOMEN: Soft and nontender. Bowel sounds are present x2. EXTREMITIES: No edema. Pedal pulses are present x2. She did have an elevated TSH of 15 with a free T4 of 0.57. The patient prior to that in April, had a TSH of 19. I will leave this up to her primary care doctor for further adjustments since her medications were recently adjusted by her primary. Again, the patient will follow up with Urology as outpatient and with her primary care doctor. Job ID: [id number]
[2018-06-15 13:17] LABS: CA Oxalate Monohydrate 30 % (.); CA Phosphate 68 % (.); Color Brown (.); Stone Weight 32.8 mg (.)
== END 2018-06-10 13:42 | disposition home or self-care (01) ==
LOC: SCSER 21:09 → 2SW 23:51
PROVIDERS: ADMIT Family Medicine; ATTEND Family Medicine
PROC: BT1D1ZZ Fluoroscopy of Right Kidney, Ureter and Bladder using Low Osmolar Contrast (ICD-10-PCS; principal; 2018-06-10)
DX: N13.2 Hydronephrosis with renal and ureteral calculous obstruction (principal); F17.200 Nicotine dependence, unspecified, uncomplicated; R07.89 Other chest pain; R10.9 Unspecified abdominal pain
CPT/HCPCS: 36415; 71045; 74018; 74176; 74420; 78452; 80048; 80053; 81003; 81015; 82365; 82553; 83690; 84439; 84443; 84484; 84703; 85007; 85025; 85027; 90471; 90732; 93005; 93017; 93306; 96361; 96365; 96366; 96367; 96372; 96375; 96376; A9500; C1758; C1769; G0009; G0378; J0131; J0153; J0360; J1100; J1650; J1885; J2001; J2270; J2405; J2550; J2704; J2765; J3010; J3490; J7050; Q9961; S0028

== ENCOUNTER 2019-01-31 17:47 | Observation (INO) | payer MEDICAID, SELFPAY ==
[2019-01-31 18:20] LABS: #Basophils 0.1 thou/uL (0.0-0.2); #Eosinphils 0.4 thou/uL (0.0-0.7); #Lymphocytes 2.2 thou/uL (1.20-3.40); #Monocytes 0.5 thou/uL (0.11-0.59); #Neutrophils 7.7 thou/uL (1.40-6.50); %Eosinophils 3.7 % (0.0-10.0); %Lymphocytes 20.3 % (21.0-51.0); %Monocytes 4.7 % (0.0-10.0); %Neutrophils 70.4 % (42.0-75.0); Hemoglobin 15.5 g/dL (12.0-16.0); Mean Corpuscular HGB CONC 33.8 g/dL (32.0-36.0); Mean Corpuscular Hemoglobin 32.4 pg (27.0-31.0); Mean Corpuscular Volume 95.9 fL (78.0-98.0); Mean Platelet Volume 11.4 fL (7.4-10.4); Platelet Count 199 thou/uL (130-400); RBC Distribution Width 12.8 % (11.5-14.5); Red Blood Cell (RBC) Count 4.78 mill/uL (4.20-5.40)
[2019-01-31] MEDS ORDERED: Nitroglycerin 0.4 MG TAB (25 Tab Bottle) ONE (18:23)
[2019-01-31] MEDS ORDERED: Promethazine HCl 25 MG/ML VIAL ONE (18:23)
[2019-01-31 18:28] LABS: BHCG - Serum Negative (NEGATIVE); Pregs Control Background? CLEAR/WHITE (CLR/WHITE); Pregs Control Bar Appear? YES (CONTROL BAR)
[2019-01-31 18:33] LABS: ALT (SGPT) 21 U/L (8-55); AST (SGOT) 23 U/L (5-34); Albumin 3.9 g/dL (3.5-5.0); Alkaline Phosphatase 116 U/L (40-110); Anion Gap 16 mmol/L (10-20); BUN (Urea Nitrogen) 12 mg/dL (7.0-18.7); Bilirubin, Total 0.2 mg/dL (0.2-1.2); CK (CPK) 210 U/L (29-168); Calc. Creatinine Clearance 0 mL/min (70-130); Calcium 9.2 mg/dL (7.8-10.44); Carbon Dioxide 26 mmol/L (22-29); Chloride 104 mmol/L (98-107); Estimated GFR-MDRD 61; Globulin 3.1 g/dL (2.4-3.5); Glucose 102 mg/dL (70-105); Potassium 4.1 mmol/L (3.5-5.1); Sodium 142 mmol/L (136-145)
[2019-01-31] MEDS ORDERED: Acetaminophen 500 MG TAB ONE (18:38)
[2019-01-31] MEDS ORDERED: Aspirin Chewable 81 MG TAB ONE (18:38)
[2019-01-31] MEDS ORDERED: Nitroglycerin 2% Ointment 1 INCH/1 GM Packet ONE (18:39)
--- NOTE | 2019-01-31 18:39 | RAD ---
XR Chest 1 View Portable History: Chest pain Comparison: Radiograph May 2018 Findings: Lungs are clear. No pneumothorax or effusion. Cardiac silhouette and mediastinal contours a re within normal limits. No acute osseous abnormality. Impression: No acute intrathoracic abnormality.
[2019-01-31] MEDS ORDERED: Morphine 4 MG/ML VIAL ONE (18:54)
[2019-01-31 20:41] VITALS: BMI 29.8
[2019-01-31 22:16] LABS: Troponin I Less than 0.010 ng/mL (< 0.028)
[2019-02-01] MEDS: Ondansetron PF 4 MG/2 ML Vial IVP PRN (00:18)
[2019-02-01] MEDS ORDERED: Acetaminophen 650 MG Suppository PR PRN (00:44)
[2019-02-01 01:00] LABS: Troponin I Less than 0.010 ng/mL (< 0.028)
[2019-02-01] MEDS: Acetaminophen 325 MG TAB PO PRN ×2 (01:41→06:17)
[2019-02-01] MEDS: traMADol HCl 50 MG TAB PO PRN ×4 (02:51→22:15)
[2019-02-01] MEDS ORDERED: hydrALAZINE 20 MG/ML VIAL SLOW IVP PRN (02:51)
--- NOTE | 2019-02-01 03:40 | HP ---
PRIMARY CARE DOCTOR: Dr. Khanh Katz. CODE STATUS: Full code. TIME OF EVALUATION: 11:00 p.m. CHIEF COMPLAINT: Chest pain. HISTORY OF PRESENT ILLNESS: This is a 48-year-old female patient with past medical history of hypothyroidism, came to the hospital after having an episode of left arm pain that started around 01:00 p.m. with no clear triggers, no alleviating factors. The patient was resting associated with dizziness and shortness of breath. The pain was moderate, 7/10. REVIEW OF SYSTEMS: CONSTITUTIONAL: No fever, chills, or generalized weakness. RESPIRATORY: No cough. No sputum production or shortness of breath. CARDIOVASCULAR: The patient has chest pain as described in HPI. No palpitation. GASTROINTESTINAL: No nausea, no vomiting, abdominal pain. 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 EXTREMITIES: No leg edema. SKIN: No specific findings on the skin. PAST MEDICAL HISTORY: As mentioned in the HPI. PAST SURGICAL HISTORY: Hysterectomy. PSYCH HISTORY: [facility]. SOCIAL HISTORY: No alcohol. No drugs. The patient is still smoking half a pack per day. FAMILY HISTORY: Diabetes. KNOWN ALLERGIES: To codeine and hydrocodone. REPORTED MEDICATIONS: 1. Adderall. 2. Synthroid. PHYSICAL EXAMINATION: VITAL SIGNS: On presentation, blood pressure 182/120, heart rate was 89, respiratory rate was 16, and temperature 98.6. Pain was 7/10. Oxygen saturation was 99% on room air. The last blood pressure in records was 165/100. GENERAL APPEARANCE: The patient is alert, oriented, not in acute distress. HEENT: Eyes, normal conjunctivae. Moist oral mucosa. Anicteric. No JVD. RESPIRATORY: Bilateral air entry. No rales. No wheezes. Symmetric expansion. CARDIOVASCULAR: Normal rate and regular rhythm. No murmurs. No gallop. No edema. ABDOMEN: Soft. Normal bowel sounds. MUSCULOSKELETAL: Baseline range of motion and strength. SKIN: Warm, intact. No pallor. No rash. No redness. Capillary refill seems to be intact. NEURO: No evidence of any new focal weakness. Cranial nerve seems to be intact. PSYCH: The patient is in good mood. No anxiety. Optimal judgment. DIAGNOSTIC STUDIES: EKG was reviewed. The patient had normal sinus rhythm with a rate of 85, T-wave inversion in lateral leads. Chest x-ray was reviewed. No acute intrathoracic abnormalities. LABORATORY DATA: Reviewed. The patient has a white count of 11, hemoglobin 15.5, MCV 95.9, and platelet count 199. Chemistry: Sodium 142, potassium 4.1, chloride 104, carbon dioxide 26, anion gap 16, BUN 12, creatinine 0.98, GFR 61, glucose 102, and calcium 9.2. LFTs were negative. Alkaline phosphatase 116. Troponin was negative x3. TSH, third generation 15.65. ASSESSMENT AND PLAN: The patient will be placed in the hospital with following medical problems. 1. Chest pain rule out acute coronary syndrome. However, the patient has reportedly a stress test done in June of this year, and she reported that was negative. I do not see that in records. If unable to obtain records in the morning, may need to do a stress test here. 2. Uncontrolled hypertension. The patient presented with very high blood pressure. The last blood pressure is controlled 137/90. We will monitor if needed. The patient will need to be started on blood pressure medications in the morning and some p.r.n. medication for optimal control. 3. Vjdfbjun-fc-[id number] pain. We will place the patient on tramadol 50 q.6 p.r.n. 4. Hypothyroidism, on levothyroxine will be continued. 5. Deep venous thrombosis prophylaxis. Job ID: [id number]
[2019-02-01] MEDS: Levothyroxine 150 MCG TAB PO SCH (06:17)
[2019-02-01 07:33] LABS: #Basophils 0.1 thou/uL (0.0-0.2); #Eosinphils 0.5 thou/uL (0.0-0.7); #Lymphocytes 2.9 thou/uL (1.20-3.40); #Monocytes 0.8 thou/uL (0.11-0.59); #Neutrophils 8.7 thou/uL (1.40-6.50); %Basophils 0.7 % (0.0-1.0); %Eosinophils 3.6 % (0.0-10.0); %Lymphocytes 22.5 % (21.0-51.0); %Monocytes 6.3 % (0.0-10.0); %Neutrophils 66.9 % (42.0-75.0); Hemoglobin 14.4 g/dL (12.0-16.0); Mean Corpuscular HGB CONC 33.6 g/dL (32.0-36.0); Mean Corpuscular Hemoglobin 32.6 pg (27.0-31.0); Mean Platelet Volume 10.2 fL (7.4-10.4); Platelet Count 169 thou/uL (130-400); RBC Distribution Width 12.3 % (11.5-14.5); Red Blood Cell (RBC) Count 4.41 mill/uL (4.20-5.40); White Blood Cell (WBC) Count 12.9 thou/uL (4.8-10.8)
[2019-02-01 07:39] LABS: Bilirubin Negative (Negative); Blood, Urine Negative (Negative); Clarity Clear (Clear); Glucose, Urine (Dipstick) Normal (Negative); Leukocyte Negative Leu/uL (Negative); Nitrite Negative (Negative); Protein, Urine (Dipstick) Negative (Neg-Trace); RBC/HPF 0-3 HPF (0-3); Squamous Epithelial 0-3 HPF (0-3); Urobilinogen Normal mg/dL (Less than 2); WBC/HPF 0-3 HPF (0-3)
[2019-02-01 07:48] LABS: Bacteria/HPF 1+ HPF (None Seen)
[2019-02-01 07:50] LABS: Urine Culture Reflex No No
[2019-02-01 07:53] LABS: Anion Gap 12 mmol/L (10-20); BUN (Urea Nitrogen) 15 mg/dL (7.0-18.7); Calc. Creatinine Clearance 68 mL/min (70-130); Calcium 8.6 mg/dL (7.8-10.44); Carbon Dioxide 28 mmol/L (22-29); Chloride 102 mmol/L (98-107); Estimated GFR-MDRD 57; Glucose 84 mg/dL (70-105); Lipase 28 U/L (8-78); Potassium 3.5 mmol/L (3.5-5.1); Sodium 138 mmol/L (136-145)
[2019-02-01] MEDS ORDERED: Nicotine 14 MG PATCH TD SCH (09:00)
[2019-02-01] MEDS ORDERED: Enoxaparin Sodium 40 MG/0.4 ML SYRINGE SC SCH (09:00)
[2019-02-01] MEDS ORDERED: Dextroamphetamine/Amphetamine [Adderall] PO SCH (09:00)
[2019-02-01 15:48] LABS: Amphetamine Detected (NotDetected); Barbiturates Screen Not Detected (NotDetected); Benzodiazepine Screen Not Detected (NotDetected); Cocaine Metabolite Screen Not Detected (NotDetected); Medtox Control Line Valid? VALID (VALID); Medtox Reader # READER 4; Methadone Not Detected (NotDetected); Methamphetamine Detected (NotDetected); Opiate Screen Detected (NotDetected); Oxycodone Screen Not Detected (NotDetected); Phencyclidine (PCP) Not Detected (NotDetected); THC/Cannabinoid Screen Not Detected (NotDetected); Tricyclic Screen Not Detected (NotDetected)
[2019-02-01] MEDS ORDERED: FLU VACC QS2019-20(6MOS UP)/PF 60 MCG/0.5 ML SYRINGE IM ONE (21:00)
--- NOTE | 2019-02-01 21:05 | CON ---
DATE OF CONSULTATION: 02/01/2019 INDICATIONS FOR CONSULTATION: 48-year-old female with chest pain. HISTORY OF PRESENT ILLNESS: This is a very pleasant 48-year-old female who was here several months ago and had stress testing back in May that did not show any significant abnormalities and was out feeding her animals a few days ago and then started complaining of some left arm pain and she has some left chest discomfort and was brought to the emergency room due to the chest discomfort. She was somewhat concerned about this. Her EKG is unremarkable. She has decreased R-wave progression in the anterior leads, but no other acute changes. There are no significant changes since May. Her chemistries showed cardiac enzymes to be negative. Her CK was 210, but no indication that she had suffered a myocardial infarction. Otherwise, laboratory data was relatively unremarkable. She has no evidence of anemia. At this time since she has had a negative stress test in May 2018, but has now presented again with chest discomfort, it may be advantageous to proceed with cardiac catheterization. We will discuss this with Dr. Azul. He will visit with her either today or tomorrow as he has seen this patient also back in May and it may be best to just proceed with a cardiac catheterization as a definitive tool to rule out evidence of underlying coronary artery disease since she does have risk factors in that she smokes half a pack a day and has done so for many years despite being told that she should stop smoking. Her stress test previously also showed ejection fraction of about 58%. PAST MEDICAL HISTORY: Please refer to the notes dictated by the nurse practitioner. SOCIAL HISTORY: Please refer to the notes dictated by the nurse practitioner. FAMILY HISTORY: Please refer to the notes dictated by the nurse practitioner. REVIEW OF SYSTEMS: Please refer to the notes dictated by the nurse practitioner. MEDICATIONS: Please refer to the notes dictated by the nurse practitioner. ALLERGIES: PLEASE REFER TO THE NOTES DICTATED BY THE NURSE PRACTITIONER. PHYSICAL EXAMINATION: GENERAL: Reveals a well-developed, well-nourished female, who is in no acute distress at this time. VITAL SIGNS: She is afebrile. Blood pressure is 140/88, heart rate is in the 70s, and respiratory rate 16. HEENT: Shows head to be normocephalic and atraumatic. Carotid pulses are present. There are no bruits. CHEST: Clear to auscultation. CARDIOVASCULAR: Exam reveals a regular rate and rhythm. Normal S1, S2. There was no S3 or S4. There were no significant murmurs, heaves, thrills, bruits, or rubs. ABDOMEN: Soft, nontender. Positive bowel sounds are present. Mild obesity. EXTREMITIES: No clubbing, cyanosis, or edema. Pedal pulses are present. She did have some mild tenderness to the left anterior chest wall and to the lateral area, but otherwise no significant abnormalities were noted otherwise. She also complains of some back pain. LABORATORY DATA: Does not show any significant abnormalities as noted above. IMPRESSION: 1. Somewhat atypical chest pain in a patient who has presented now the second time with chest pain in the hospital within the last 8 months and has risk factors for coronary artery disease. Despite having a negative stress test, we will give consideration to a cardiac catheterization. We will discuss this with Dr. Azul. 2. History of tobacco abuse. I have strongly encouraged her to stop smoking altogether. Further care of the patient will be by Dr. Azul. Job ID: [id number]
--- NOTE | 2019-02-01 22:54 | CON ---
DATE OF CONSULTATION: PRIMARY CARE DOCTORS: Unknown. PRIMARY COMPANION: Dr. Hutchins. REASON FOR CARDIOLOGY CONSULT: Chest pain, recent normal stress test. HISTORY OF PRESENT ILLNESS: Ms. Loco is a 48-year-old female with a significant history of hypothyroidism, ADHD, and migraine. The patient was doing well until Thursday. She was busy feeding the animal and at times she did not have any chest pain, heaviness, tightness, shortness of breath, or any other cardiac complaints, but yesterday around 2:30 afternoon, she started having pain to the left arm. Within 15 minutes, she started having pain to left mediastinal borders and under her breast, which the pain in her arm and the chest become worse with movement. Also, she started having the dizziness, shortness breath, and headache. When she checked the blood pressure at home, her blood pressure was 156/125. Due to those reasons, the patient presented to emergency department for further evaluation and treatment. After she had heating pad on her arm and at this moment, she does not have any pain to the left arm. She continued having mild discomfort to that chest; however, she can move around to go to the bathroom without any difficulty at this moment. She also complained of nausea after eating for few months with complaint of constipation. She had a colonoscopy 5 to 6 years ago and the polyp was removed, however, that time, the patient was recommend to have another colonoscopy to remove all polyps in her intestine, however, since she does not have insurance, she has not had that procedure done at this moment. She has echocardiogram that was done on June 10, 2018, with EF of 55% to 60%, mild left ventricular hypertrophy, mild mitral valve regurgitation, mild aortic valve regurgitation, mild tricuspid regurgitation. She had a stress test done in May 2018 with no reversible ischemia with EF of 58%. PAST MEDICAL HISTORY: Hypothyroidism, ADHD, migraine. SURGICAL HISTORY: Colonoscopy 5 to 6 years ago and hysterectomy. ALLERGIES: NO KNOWN DRUG ALLERGIES. HOME MEDICATIONS: Adderall 30 mg twice a day and levothyroxine 150 mcg once a day. FAMILY HISTORY: The patient's father has a medical history of hypertension and diabetes. The patient's mother has a history of diabetes. SOCIAL HISTORY: She is . She has 2 children, who live well. She is a current smoker. She used to smoke 2 pack a day till 2017, now she is smoking 1/2 pack a day. She drinks alcohol occasionally. Denied illicit drug abuse. She drinks 3 to 4 cups a day of coffee and she drinks tea two or three glasses a day. 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 REVIEW OF SYSTEMS: 12-point review of systems negative unless otherwise mentioned in the HPI. PHYSICAL EXAMINATION: VITAL SIGNS: Her blood pressure is around 120 to 140 in the systolic coleman until noon. However, this afternoon, the patient's blood pressure has been 160 to 170s over 90s to 100 possibly due to the migraine. Temperature 97.7, pulse is 66, respiratory rate 20, and O2 saturation 94% on room air. GENERAL: The patient is alert and oriented x4, not in acute distress. HEENT: Normocephalic and atraumatic. EYES: Extraocular muscle movement intact. ENT and mouth, oral and nasal mucosa moist without lesion. NECK: Supple. Normal range of motion. No JVD. RESPIRATORY: Clear to auscultation bilaterally. No wheezing, rales, or rhonchi noted. CARDIOVASCULAR: Regular rate and rhythm. Normal S1, S2. There is no S3 or S4. No significant murmur, hives, or thrill noted. EXTREMITIES: 2+ pulses in the bilateral lower extremities. No edema in the lower extremities. Carotid pulses are present without bruit or thrill. ABDOMEN: Soft, nontender. No masses to palpitate. Bowel sounds are present, but hypoactive at this moment. SKIN: Warm and dry. No lesion, rash, erythema noted. MUSCULOSKELETAL: The patient able to move all extremities. The patient denied claudication. NEUROLOGIC: The patient is alert and oriented x4, nonfocal. PSYCHIATRIC: The patient's mood is appropriate. LABORATORY DATA: WBC 12.9, hemoglobin 14.4, hematocrit 42.7, platelets 169. Sodium of 138, potassium 3.5, BUN 15, creatinine is 1.04. AST 23, ALT 21, alkaline phosphate 116, creatine kinase 210. Troponin is negative x3. BNP is less than 10. TSH is 15.6562, lipase 28. UA, she is positive for opioids, amphetamine, and methamphetamine. EK-lead EKG shows sinus rhythm with T-wave inversion in V1, V2, V4, and V5, V6. However, compared to May 2018, there is no change. The patient had a stress test done which was showing normal. ASSESSMENT AND PLAN: 1. Chest pain. Although, the patient has a normal stress test and normal echo result in May 2018, since the patient has a high risk of cardiac risk such as hypertension and current smoker. Also, she is positive to illicit drugs. The patient might need a cardiac catheterization, which we will defer to Dr. Azul's who is the patient's main behavior analyst tomorrow. The patient is going to be n.p.o. after midnight from [facility]. 2. Hypertension. The patient's blood pressure has been stable till this afternoon. We would like to check her blood pressure after patient's Tramadol was given. The patient is on the hydralazine p.r.n. 3. Hypothyroidism. The patient's TSH is elevated at 15.6561. We do not have T4 results at this moment. We would like to refer to the patient's primary care doctor. 4. Illicit drug abuse. Drug cessation education will be given to the patient. Thank you very much for Cardiology Service to participate in the care of this patient. We will follow along the patient's care team and make further recommendations as appropriate. Job ID: [id number]
--- NOTE | 2019-02-01 23:24 | PDOC.HOSPP ---
- Subjective Encounter Date: 02/01/19 Encounter Time: 10:30 Subjective: Patient seen and examined for CP. No new CP. No other complaints. No overnight events - Objective Vital Signs & Weight: Vital Signs (12 hours) Temp Pulse Resp BP Pulse Ox 02/01/19 20:10 98 F 78 18 157/95 H 97 02/01/19 17:40 164/81 H 02/01/19 16:18 66 178/96 H 02/01/19 15:37 97.7 F 66 20 169/104 H 94 L 02/01/19 11:37 97.7 F 72 16 140/88 93 L Weight Admit Weight 142 lb 11.2 oz Weight 142 lb 11.2 oz I&O: 01/31/19 02/01/19 02/02/19 06:59 06:59 06:59 Intake Total 240 240 Output Total 450 1050 Balance -210 -810 Result Diagrams: 02/01/19 06:54 02/01/19 06:54 Radiology Reviewed by me: Yes (CXR - no infiltrate) EKG Reviewed by me: Yes (SR) Hospitalist ROS - Review of Systems Cardiovascular: denies: chest pain, palpitations, orthopnea, paroxysmal noc. dyspnea, edema, light headedness, other Gastrointestinal: denies: nausea, vomiting, abdominal pain, diarrhea, constipation, melena, hematochezia, other - Medication Medications: Active Medications Generic Name Dose Route Start Last Admin Trade Name Freq PRN Reason Stop Dose Admin Acetaminophen 650 mg 02/01/19 00:44 02/01/19 06:17 Tylenol PO 650 mg Q4H PRN Administration Headache/Fever/Mild Pain (1-3) Enoxaparin Sodium 40 mg 02/01/19 09:00 02/01/19 09:06 Lovenox SC 40 mg 0900 DAWOOD Administration Levothyroxine Sodium 150 mcg 02/01/19 06:00 02/01/19 06:17 Synthroid PO 150 mcg 0600 DAWOOD Administration Ondansetron HCl 4 mg 01/31/19 23:52 02/01/19 00:18 Zofran IVP 4 mg Q6H PRN Administration Nausea/Vomiting Tramadol HCl 50 mg 02/01/19 02:41 02/01/19 22:15 Ultram PO 50 mg Q6H PRN Administration Headache, Aches,Moderate Pain - Exam General Appearance: NAD Neck: supple, symmetric, no JVD Heart: RRR, no murmur, no gallops, no rubs Respiratory: CTAB, no wheezes, no rales, no ronchi Gastrointestinal: soft, non-tender, normal bowel sounds Extremities: no cyanosis, no clubbing, no edema Psychiatric: normal affect, A&O x 3 Hosp A/P (1) Chest pain Code(s): R07.9 - CHEST PAIN, UNSPECIFIED Status: Acute (2) Tobacco dependence Code(s): F17.200 - NICOTINE DEPENDENCE, UNSPECIFIED, UNCOMPLICATED Status: Chronic (3) HTN (hypertension) Code(s): I10 - ESSENTIAL (PRIMARY) HYPERTENSION Status: Chronic (4) Hypothyroidism Code(s): E03.9 - HYPOTHYROIDISM, UNSPECIFIED Status: Chronic - Plan DVT proph w/SCDs Patient had a negative stress test earlier this year. Consult Cardiology Add ASA Cont Levothyroxine Tobacco cessation Lipid profile as outpt
[2019-02-01] MEDS ORDERED: Nitroglycerin 0.4 MG TAB (25 Tab Bottle) PO PRN (23:25)
[2019-02-02] MEDS: traMADol HCl 50 MG TAB PO PRN ×3 (04:06→21:45)
[2019-02-02] MEDS: Acetaminophen 325 MG TAB PO PRN (04:06)
[2019-02-02] MEDS: Levothyroxine 150 MCG TAB PO SCH (04:47)
--- NOTE | 2019-02-02 07:09 | PDOC.CPN ---
- Subjective Date: 02/02/19 Time: 09:00 - Objective Allergies/Adverse Reactions: Allergies Allergy/AdvReac Type Severity Reaction Status Date / Time codeine Allergy Severe Verified 01/31/19 20:57 hydrocodone [From Roxie] Allergy Verified 01/31/19 20:57 Visit Medications: Current Medications Acetaminophen (Tylenol) 650 mg PO Q4H PRN PRN Reason: Headache/Fever/Mild Pain (1-3) Last Admin: 02/02/19 04:06 Dose: 650 mg Acetaminophen (Tylenol) 650 mg [place] Q4H PRN PRN Reason: Headache/Fever/Mild Pain (1-3) Aspirin (Ecotrin) 325 mg PO DAILY DAWOOD Hydralazine HCl (Apresoline) 10 mg SLOW IVP Q4H PRN PRN Reason: BP>160/100 Last Admin: 02/02/19 04:05 Dose: 10 mg Levothyroxine Sodium (Synthroid) 150 mcg PO 0600 DAWOOD Last Admin: 02/02/19 04:47 Dose: 150 mcg Nitroglycerin (Nitrostat) 0.4 mg PO Q5MIN PRN PRN Reason: Chest Pain Ondansetron HCl (Zofran) 4 mg IVP Q6H PRN PRN Reason: Nausea/Vomiting Last Admin: 02/01/19 00:18 Dose: 4 mg Dextroamphetamine/Amphetamine [ Adderall] 0 each PO BID DAWOOD Sodium Chloride (Flush - Normal Saline) 10 ml IVF PRN PRN PRN Reason: Saline Flush Tramadol HCl (Ultram) 50 mg PO Q6H PRN PRN Reason: Headache, Aches,Moderate Pain Last Admin: 02/02/19 04:06 Dose: 50 mg Vital Signs & Weight: Vital Signs Temp Pulse Resp BP BP Pulse Ox 02/02/19 05:05 73 150/88 H 02/02/19 04:05 78 180/80 H 02/02/19 03:39 97.8 F 75 15 182/92 H 95 02/02/19 02:09 95 02/01/19 23:15 98 F 78 17 156/91 H 95 02/01/19 20:10 98 F 78 18 157/95 H 97 Admit Weight 142 lb 11.2 oz Weight 142 lb 11.2 oz - Labs Result Diagrams: 02/01/19 06:54 02/01/19 06:54 Troponin/CKMB Troponin I Less than 0.010 ng/mL (< 0.028) 02/01/19 00:21 - Assessment/Plan Assessment/Plan: Recurrent CP Tobacco abuse
[2019-02-02] MEDS ORDERED: Amlodipine 5 MG TAB PO SCH (11:15)
[2019-02-02] MEDS ORDERED: cloNIDine 0.1 MG TAB PO PRN (11:23)
[2019-02-02] MEDS: Aspirin 325 mg Enteric Coated Tablet PO SCH (11:48)
[2019-02-02] MEDS ORDERED: Communication Order-Pharmacy FS SCH (16:00)
[2019-02-02] MEDS ORDERED: Lisinopril 10 MG TAB PO SCH (16:00)
[2019-02-02] MEDS ORDERED: Sodium Chloride 0.9% 1,000 ML IV SCH (16:00)
--- NOTE | 2019-02-02 16:37 | PRG ---
DATE OF SERVICE: 02/02/2019 SUBJECTIVE: Ms. Loco is currently doing well. No recurrent episodes of chest pain. OBJECTIVE: GENERAL: Patient is a pleasant female, who is in no acute distress. She does appear older than stated age. VITAL SIGNS: Blood pressure 186/97, pulse 71, temperature afebrile. NEUROLOGIC: The patient is alert and oriented x3 with no focal neurologic deficits. HEENT: Sclerae without icterus. Mouth has moist mucous membranes with normal pallor. NECK: No JVD. Carotid upstroke brisk. No bruits bilaterally. LUNGS: Clear to auscultation with unlabored respirations. BACK: No scoliosis or kyphosis. CARDIAC: Regular rate and rhythm with normal S1 and S2. No S3 or S4 noted. No significant rubs, murmurs, thrills, or gallops noted throughout the precordium. PMI is not displaced. There is no parasternal heave. ABDOMEN: Soft, nontender, nondistended. No peritoneal signs present. No hepatosplenomegaly. No abnormal striae. EXTREMITIES: 2+ femoral and 2+ dorsalis pedis pulses. No cyanosis, clubbing, or edema. SKIN: No gross abnormalities. IMPRESSION: 1. Recurrent chest pain. 2. Tobacco abuse. RECOMMENDATIONS: Ms. Loco did undergo a noninvasive stress study earlier in the year. This is negative for ischemia. She has recurrent pain. I discussed medical therapy versus proceeding with coronary angiography. After discussing risks and benefits of both, she would like to proceed with coronary angiography. I discussed the procedure in full detail with Ms. Loco. Risks include but not limited to: , stroke, MT, need for emergency surgery, loss of limb, bleeding, and infection, as well as a reaction to the dye causing kidney failure and needing long-term dialysis. I also discussed the risks of PCI to include all of the above including coronary dissection and perforation in addition to acute stent thrombosis and restenosis. All questions were answered. Given the above, the patient agreed to proceed with the above procedure. Further recommendations pending the above. Job ID: [id number]
--- NOTE | 2019-02-02 20:12 | PDOC.HOSPP ---
- Subjective Encounter Date: 02/02/19 Encounter Time: 11:30 Subjective: Patient seen and examined for CP. No new episodes of CP. No new complaints. No overnight events - Objective Vital Signs & Weight: Vital Signs (12 hours) Temp Pulse Resp BP BP Pulse Ox 02/02/19 17:02 178/87 H 02/02/19 15:32 97.7 F 72 16 178/87 H 95 02/02/19 14:11 71 186/97 H 02/02/19 11:49 83 02/02/19 11:30 97.6 F 73 20 182/112 H 96 Weight Admit Weight 142 lb 11.2 oz Weight 142 lb 11.2 oz I&O: 02/01/19 02/02/19 02/03/19 06:59 06:59 06:59 Intake Total 240 720 Output Total 450 1750 Balance -210 -1030 Result Diagrams: 02/01/19 06:54 02/01/19 06:54 EKG Reviewed by me: Yes (Tele SR) Hospitalist ROS - Review of Systems Respiratory: denies: cough, dry, shortness of breath, hemoptysis, SOB with excertion, pleuritic pain, sputum, wheezing, other Cardiovascular: denies: chest pain, palpitations, orthopnea, paroxysmal noc. dyspnea, edema, light headedness, other Gastrointestinal: denies: nausea, vomiting, abdominal pain, diarrhea, constipation, melena, hematochezia, other - Medication Medications: Active Medications Generic Name Dose Route Start Last Admin Trade Name Freq PRN Reason Stop Dose Admin Acetaminophen 650 mg 02/01/19 00:44 02/02/19 04:06 Tylenol PO 650 mg Q4H PRN Administration Headache/Fever/Mild Pain (1-3) Aspirin 325 mg 02/02/19 09:00 02/02/19 11:48 Ecotrin PO 325 mg DAILY DAWOOD Administration Clonidine 0.1 mg 02/02/19 11:23 02/02/19 14:32 Catapres PO 0.1 mg Q4H PRN Administration SBP Greater Than 180 Hydralazine HCl 10 mg 02/01/19 02:51 02/02/19 04:05 Apresoline SLOW IVP 10 mg Q4H PRN Administration BP>160/100 Levothyroxine Sodium 150 mcg 02/01/19 06:00 02/02/19 04:47 Synthroid PO 150 mcg 0600 DAWOOD Administration Ondansetron HCl 4 mg 01/31/19 23:52 02/01/19 00:18 Zofran IVP 4 mg Q6H PRN Administration Nausea/Vomiting Tramadol HCl 50 mg 02/02/19 11:31 02/02/19 11:48 Ultram PO 50 mg Q4H PRN Administration Headache, Aches,Moderate Pain - Exam General Appearance: NAD Heart: RRR, no gallops Respiratory: CTAB, no rales Gastrointestinal: soft, non-tender, non-distended, normal bowel sounds Extremities: no edema Hosp A/P (1) Chest pain Code(s): R07.9 - CHEST PAIN, UNSPECIFIED Status: Acute (2) Tobacco dependence Code(s): F17.200 - NICOTINE DEPENDENCE, UNSPECIFIED, UNCOMPLICATED Status: Chronic (3) HTN (hypertension) Code(s): I10 - ESSENTIAL (PRIMARY) HYPERTENSION Status: Chronic (4) Hypothyroidism Code(s): E03.9 - HYPOTHYROIDISM, UNSPECIFIED Status: Chronic - Plan DVT proph w/SCDs Cont ASA Cont Levothyroxine Pending Cardiac Cath Tobacco cessation
[2019-02-02] MEDS: Ondansetron PF 4 MG/2 ML Vial IVP PRN (22:00)
[2019-02-03] MEDS: Levothyroxine 150 MCG TAB PO SCH (04:34)
[2019-02-03] MEDS ORDERED: Sodium Chloride 0.9% 1,000 ML IV SCH ×2 (06:00→09:00)
[2019-02-03] MEDS: Aspirin 325 mg Enteric Coated Tablet PO SCH (07:08)
[2019-02-03] MEDS ORDERED: Lidocaine 1% (PF) 30 ML VIAL ONE (08:04)
[2019-02-03] MEDS ORDERED: Nitroglycerin 100MG/250ML BOT 250 ML ONE (08:31)
[2019-02-03] MEDS ORDERED: Verapamil 5 MG/2 ML VIAL ONE (08:31)
[2019-02-03] MEDS ORDERED: Heparin 10,000 UNITS/1 ML VIAL ONE (08:31)
[2019-02-03] MEDS ORDERED: Fentanyl 100 MCG/2 ML VIAL ONE (08:33)
[2019-02-03] MEDS ORDERED: Midazolam HCl 2 mg/2 ml Vial ONE (08:34)
[2019-02-03] MEDS ORDERED: Sodium Chloride 0.9% 200 ML IV PRN (08:57)
[2019-02-03] MEDS ORDERED: Nitroglycerin 0.4 MG TAB (25 Tab Bottle) SL PRN (08:57)
[2019-02-03] MEDS ORDERED: Amlodipine 5 MG TAB PO SCH (09:00)
[2019-02-03] MEDS ORDERED: Lisinopril 10 MG TAB PO SCH (09:00)
[2019-02-03] MEDS ORDERED: Aspirin 325 mg Enteric Coated Tablet PO SCH (09:00)
[2019-02-03 11:34] VITALS: BP 122/74; TEMP 98
[2019-02-03] MEDS: traMADol HCl 50 MG TAB PO PRN (12:26)
[2019-02-03] MEDS ORDERED: Iopamidol 370 76% 100 ML VIAL ONE (14:44)
--- NOTE | 2019-02-05 00:16 | DIS ---
DATE OF ADMISSION: 01/31/2019 DATE OF DISCHARGE: 02/03/2019 DISCHARGE DISPOSITION: Home. FOLLOWUP: 1. Follow up with primary care physician, Dr. Khanh Katz. 2. Follow up with Dr. Azul as needed. ALLERGIES: CODEINE AND HYDROCODONE. DISCHARGE MEDICATIONS: 1. Lisinopril 10 mg daily. 2. The patient will continue levothyroxine and Adderall as scheduled. INPATIENT PHLEBOTOMY SPECIALIST: Cardiology, Dr. Azul. BRIEF HOSPITAL COURSE: The patient is a 48-year-old female with hypothyroidism, presented to the hospital with chest discomfort. Please refer to the history and physical by Dr. Major for further details. The patient was admitted to the hospital with a diagnosis of chest discomfort rule out acute coronary syndrome. Serial troponins remain negative. She recently had a stress test, which was negative. She was evaluated by Cardiology. Cardiac catheterization was performed that showed no flow-limiting disease. Official cath report is pending at this time. She has been started on lisinopril due to uncontrolled blood pressure. She appears stable for discharge. FINAL DIAGNOSES: 1. Chest discomfort. 2. Tobacco dependence. 3. Hypertension. 4. Hypothyroidism. Her TSH in the hospital was 15.6. Repeat TSH as outpatient is recommended. 5. The patient was advised to follow up on the final cardiac catheterization report. 6. Chronic kidney disease, stage 2. 7. Codeine and hydrocodone allergy. 8. Hypertensive urgency on ER arrival with a blood pressure 182/120. Job ID: [id number]
== END 2019-02-03 15:09 | disposition home or self-care (01) ==
LOC: SCSER 17:47 → 2SW 20:21
PROVIDERS: ADMIT Hospitalist; ATTEND Hospitalist
DX: R07.89 Other chest pain (principal); I16.0 Hypertensive urgency; I12.9 Hypertensive chronic kidney disease with stage 1 through stage 4 chronic kidney disease, or unspecified chronic kidney disease; N18.2 Chronic kidney disease, stage 2 (mild); E03.9 Hypothyroidism, unspecified; E05.00 Thyrotoxicosis with diffuse goiter without thyrotoxic crisis or storm; F17.210 Nicotine dependence, cigarettes, uncomplicated; F90.9 Attention-deficit hyperactivity disorder, unspecified type; Z79.899 Other long term (current) drug therapy; Z88.5 Allergy status to narcotic agent
CPT/HCPCS: 36415; 71045; 76942; 80048; 80053; 80306; 81001; 82550; 83690; 83880; 84443; 84484; 84703; 85025; 90471; 90686; 93458; 94760; 96372; 96374; 96375; 96376; 99152; C1769; G0008; G0378; J0360; J1644; J1650; J2001; J2250; J2270; J2405; J2550; J3010; Q9967

== ENCOUNTER 2019-03-06 03:44 | Emergency (ER) | payer MEDICAID, SELFPAY ==
[2019-03-06] MEDS ORDERED: Ketorolac Tromethamine 30 MG/ML VIAL ONE (04:33)
[2019-03-06] MEDS ORDERED: Aspirin Chewable 81 MG TAB ONE (04:33)
[2019-03-06] MEDS ORDERED: Acetaminophen 500 MG TAB ONE (04:33)
[2019-03-06 04:41] LABS: #Basophils 0.1 thou/uL (0.0-0.2); #Eosinphils 0.4 thou/uL (0.0-0.7); #Lymphocytes 2.1 thou/uL (1.20-3.40); #Monocytes 0.8 thou/uL (0.11-0.59); #Neutrophils 9.5 thou/uL (1.40-6.50); %Basophils 0.7 % (0.0-1.0); %Eosinophils 2.9 % (0.0-10.0); %Lymphocytes 16.5 % (21.0-51.0); %Monocytes 6.2 % (0.0-10.0); %Neutrophils 73.6 % (42.0-75.0); Hemoglobin 16.9 g/dL (12.0-16.0); Mean Corpuscular Hemoglobin 31.9 pg (27.0-31.0); Mean Corpuscular Volume 96.6 fL (78.0-98.0); Mean Platelet Volume 11.3 fL (7.4-10.4); Platelet Count 200 thou/uL (130-400); RBC Distribution Width 12.8 % (11.5-14.5); White Blood Cell (WBC) Count 12.8 thou/uL (4.8-10.8)
[2019-03-06 04:56] LABS: ALT (SGPT) 17 U/L (8-55); AST (SGOT) 20 U/L (5-34); Albumin 4.3 g/dL (3.5-5.0); Alkaline Phosphatase 103 U/L (40-110); Anion Gap 16 mmol/L (10-20); BUN (Urea Nitrogen) 12 mg/dL (7.0-18.7); Bilirubin, Total 0.6 mg/dL (0.2-1.2); CK (CPK) 355 U/L (29-168); Calc. Creatinine Clearance 0 mL/min (70-130); Calcium 9.3 mg/dL (7.8-10.44); Carbon Dioxide 24 mmol/L (22-29); Chloride 104 mmol/L (98-107); Estimated GFR-MDRD 67; Globulin 2.9 g/dL (2.4-3.5); Glucose 128 mg/dL (70-105); Potassium 3.1 mmol/L (3.5-5.1); Protein, Total 7.2 g/dL (6.0-8.3); Sodium 141 mmol/L (136-145)
[2019-03-06] MEDS ORDERED: Nitroglycerin 2% Ointment 1 INCH/1 GM Packet ONE (05:01)
[2019-03-06] MEDS ORDERED: hydrALAZINE 20 MG/ML VIAL ONE (05:44)
--- NOTE | 2019-03-06 08:06 | RAD ---
RADIOGRAPH CHEST 1 VIEW: DATE: 03/06/2019 HISTORY: 49-year-old female with chest pain FINDINGS: There are no airspace densities, pulmonary edema, pneumothorax, or cardiomegaly. The lateral costophr enic angles are sharp. IMPRESSION: No acute cardiopulmonary findings.
== END 2019-03-06 06:29 | disposition home or self-care (01) ==
LOC: SCSER 03:44
DX: R07.9 Chest pain, unspecified (principal); M54.12 Radiculopathy, cervical region; I10 Essential (primary) hypertension; F90.9 Attention-deficit hyperactivity disorder, unspecified type; Z87.891 Personal history of nicotine dependence; Z79.899 Other long term (current) drug therapy; E05.00 Thyrotoxicosis with diffuse goiter without thyrotoxic crisis or storm
CPT/HCPCS: 71045; 80053; 82550; 84484; 85025; 93005; 96374; 96375; J0360; J1885